=== PATIENT | male | born 1960 | race Caucasian/White ===

== ENCOUNTER 2017-03-01 23:55 | Emergency (ER) | payer SELFPAY ==
[2017-03-02] MEDS ORDERED: Albuterol-Ipratrop 3 mg / 0.5 (3 ml) UD ONE ×3 (00:07→00:47)
--- NOTE | 2017-03-02 00:08 | C.PDOC ---
History Of Present Illness Patient with worsening allergies, swollen eyelids, some wheezing, speaking in complete sentences. No f/c/n/v, Time Seen by Provider: 03/02/17 00:07 Chief Complaint (Nursing): Allergic Reaction History Per: Patient History/Exam Limitations: no limitations Onset/Duration Of Symptoms: Days Current Symptoms Are (Timing): Still Present Context: Other Possible Cause: Seasonal Allergies Associated Symptoms: Redness. denies: Skin Rash Home/EMS Treatment: None Severity: Moderate Pain Scale Rating Of: 4 Recent travel outside of the [place]: No Additional History Per: Patient Past Medical History Reviewed: Historical Data, Nursing Documentation, Vital Signs Vital Signs: Last Vital Signs Temp 97.6 F 03/01/17 23:59 Pulse 85 03/02/17 00:35 Resp 18 03/02/17 00:35 BP 148/87 03/02/17 00:35 Pulse Ox 100 03/02/17 00:35 - Medical History PMH: Asthma, Bronchitis, HTN (no meds), Kidney Stones, Chronic Kidney Disease Family History: States: No Known Family Hx, Diabetes - Social History Hx Tobacco Use: No Hx Alcohol Use: No Hx Substance Use: No - Immunization History Hx Tetanus Toxoid Vaccination: No Hx Influenza Vaccination: Yes Hx Pneumococcal Vaccination: No Review Of Systems Constitutional: Negative for: Fever, Chills Eyes: Positive for: Redness ENT: Negative for: Ear Pain Cardiovascular: Negative for: Chest Pain, Palpitations Respiratory: Positive for: Wheezing. Negative for: Shortness of Breath Gastrointestinal: Negative for: Nausea, Vomiting Genitourinary: Negative for: Dysuria Musculoskeletal: Negative for: Back Pain Skin: Negative for: Rash, Lesions, Jaundice, Bruising Neurological: Negative for: Weakness Psych: Negative for: Anxiety Physical Exam - Physical Exam Appears: Non-toxic Skin: Warm, Dry Eye(s): bilateral: Other (edematous eye lids) Nose: Normal Oral Mucosa: Moist Throat: No Erythema, No Exudate, No Drooling Neck: No Supple Chest: Symmetrical Cardiovascular: Rhythm Regular Respiratory: No Rales, No Rhonchi, Wheezing (few) Gastrointestinal/Abdominal: Soft, No Tenderness, No Distention Extremity: Normal ROM Extremity: Bilateral: Atraumatic Neurological/Psych: Oriented x3, Normal Speech, Normal Cognition Gait: Steady ED Course And Treatment O2 Sat by Pulse Oximetry: 100 Pulse Ox Interpretation: Normal Progress Note: iv solumedrol, pepcid , nebs Reevaluation Time: 02:53 Reassessment Condition: Improved Critical Care Time - Critical Care Note Total Time (in mins): 30 Documented critical care: time excludes all time spent performing seperately billable procedures. Medical Decision Making Medical Decision Making: Upon provider reevaluation patient is feeling better, is medically stable, and requires no further treatment in the ED at this time. Patient will be discharged home with Rx for albuterol, prednisone . Counseling was provided and all questions were answered regarding diagnosis and need for follow up with the referred clinic. There is agreement to discharge plan. Return if symptoms persist or worsen. Disposition Counseled Patient/Family Regarding: Studies Performed, Diagnosis, Need For Followup, Rx Given - Disposition Referrals: [facility] at [facility] [Outside] [facility] [Outside] Disposition: HOME/ ROUTINE Disposition Time: 00:07 Condition: FAIR Additional Instructions: Please return if symptoms recur. Also use benadryl, pepcid and claritin Prescriptions: Albuterol 0.083% [Albuterol Sulfate 3 Ml] 3 ml IH QID #50 neb predniSONE [predniSONE Tab] 20 mg PO DAILY #5 tab Instructions: General Allergic Reaction (ED) Print Language: SLOVENIAN - Clinical Impression Clinical Impression: Allergy
[2017-03-02] MEDS ORDERED: Sodium Chloride 0.9% 1,000 ML IV ONE (00:14)
[2017-03-02] MEDS ORDERED: Sodium Chloride 0.9% 1,000 ML ONE (00:26)
[2017-03-02] MEDS: Albuterol-Ipratrop 3 mg / 0.5 (3 ml) UD IH SCH ×2 (00:46→00:47)
[2017-03-02 03:11] VITALS: BP 158/93; PULSE 96; RESP 20; TEMP 97.9; O2SAT 97
== END 2017-03-02 03:11 | disposition home or self-care (01) ==
LOC: C.ER 23:55
DX: T78.40XA Allergy, unspecified, initial encounter (principal); X58.XXXA Exposure to other specified factors, initial encounter
CPT/HCPCS: 96361; 96374; 96375; 99284; J2930; J7040

== ENCOUNTER 2017-03-23 18:24 | Emergency (ER) | payer SELFPAY ==
[2017-03-23] MEDS ORDERED: Albuterol-Ipratrop 3 mg / 0.5 (3 ml) UD ONE (18:44)
[2017-03-23] MEDS ORDERED: Albuterol-Ipratrop 3 mg / 0.5 (3 ml) UD IH STA (18:47)
[2017-03-23] MEDS ORDERED: Albuterol 0.083% Inhal Sol (2.5 mg/3 mL) UD IH STA ×2 (18:47→20:27)
--- NOTE | 2017-03-23 18:54 | C.PDOC ---
History Of Present Illness 56-year-old male, PMHx includes Asthma, presents to the emergency department with complaints of sore throat. Patient states that he was seen in ED two weeks ago, for shortness of breath and wheezing. patient was discharged after being treated with IVFs, and given Rx for nebulizer meds and inhaler. he states that he developed a productive cough w/ white sputum a few days ago, associated with sore throat, pressure headache behind his eyes, and swollen glands. Patient denies nausea/vomiting, diarrhea, shortness of breath, dizziness, numbness/ weakness, visual changes, chest pain, trouble swallowing, lip/tongue swelling, rashes, or any other associated symptoms. No other complaints at this time. Time Seen by Provider: 03/23/17 18:43 Chief Complaint (Nursing): Cough, Cold, Congestion History Per: Patient History/Exam Limitations: no limitations Onset/Duration Of Symptoms: Days Current Symptoms Are (Timing): Still Present Location Of Pain: Throat, Headache Associated Symptoms: Sore Throat, Cough, Sputum Past Medical History Reviewed: Historical Data, Nursing Documentation, Vital Signs Vital Signs: Last Vital Signs Temp 98.5 F 03/23/17 20:25 Pulse 84 03/23/17 20:25 Resp 20 03/23/17 20:25 BP 148/90 03/23/17 20:25 Pulse Ox 96 03/23/17 21:30 - Medical History PMH: Asthma, Bronchitis, HTN (no meds), Kidney Stones, Chronic Kidney Disease Family History: States: Unknown Family Hx, Diabetes - Social History Hx Tobacco Use: No Hx Alcohol Use: No Hx Substance Use: No - Immunization History Hx Tetanus Toxoid Vaccination: No Hx Influenza Vaccination: Yes Hx Pneumococcal Vaccination: No Review Of Systems Except As Marked, All Systems Reviewed And Found Negative. Constitutional: Negative for: Fever Cardiovascular: Negative for: Chest Pain, Palpitations Respiratory: Positive for: Cough, Sputum. Negative for: Hemoptysis Gastrointestinal: Negative for: Nausea, Vomiting Genitourinary: Negative for: Dysuria, Frequency Musculoskeletal: Negative for: Back Pain Skin: Negative for: Rash Neurological: Positive for: Headache. Negative for: Weakness, Numbness, Dizziness Physical Exam - Physical Exam Appears: Non-toxic, No Acute Distress, Other (Speaking in full sentences.) Skin: Warm, Dry, No Rash Head: Atraumatic, Normacephalic Eye(s): bilateral: Normal Inspection, PERRL Ear(s): Bilateral: Normal Nose: Normal Oral Mucosa: Moist Lips: Normal Appearing Throat: No Erythema, No Exudate Neck: Normal ROM, Supple, Other (Tender, enlarged cervical lymph nodes.) Chest: Symmetrical Cardiovascular: Rhythm Regular, No Murmur Respiratory: No Accessory Muscle Use, No Rales, No Stridor, Wheezing (B/L INSPIRATORY AND EXPIRATORY) Extremity: Normal ROM Neurological/Psych: Oriented x3 (No focal deficit) ED Course And Treatment - Laboratory Results Result Diagrams: 03/23/17 19:18 03/23/17 19:18 Lab Interpretation: No Acute Changes Interpretation Of Abnormal: Mild elevated BUN 22 and low Ca+7.8 ECG: Interpreted By Me ECG Rhythm: Sinus Rhythm ECG Interpretation: Normal O2 Sat by Pulse Oximetry: 96 Pulse Ox Interpretation: Normal - Radiology CXR: Interpreted by Me CXR Interpretation: Yes: No Acute Disease Progress Note: EKG, Bloodwork, Chest X-Ray and Peak Flow, ordered and reviewed. patient was treated with Duoneb. 8:20 Patient still wheezing and c/o headache after initial duoneb and albuterol treatment. Found sleeping lying fully supine on the stretcher in no distress. Additional nebulizer treatments and IV Solumedrol and Tylenol ordered. Reevaluation Time: 22:08 Reassessment Condition: Improved (Lungs now clear.) Disposition Counseled Patient/Family Regarding: Studies Performed, Diagnosis, Need For Followup, Rx Given - Disposition Referrals: [facility] [Outside] Disposition: HOME/ ROUTINE Disposition Time: 22:09 Condition: IMPROVED Prescriptions: Albuterol 0.083% [Albuterol Sulfate 3 Ml] 3 ml IH Q4 PRN #120 neb PRN Reason: Wheezing Methylprednisolone [Medrol Dose Pack (21 tabs)] 4 mg PO DAILY #21 mg Instructions: Asthma (ED), Wheezing (ED) Print Language: MOHAWK - Clinical Impression Clinical Impression: Bronchospasm, Exacerbation of asthma - Scribe Statement The provider has reviewed the documentation as recorded by the Theresa Diego All medical record entries made by the Scribe were at my direction and personally dictated by me. I have reviewed the chart and agree that the record accurately reflects my personal performance of the history, physical exam, medical decision making, and the department course for this patient. I have also personally directed, reviewed, and agree with the discharge instructions and disposition.
[2017-03-23 19:21] LABS: BASO # 0.1 K/uL (0.0-0.2); EOS # 1.1 K/uL (0.0-0.7); HEMATOCRIT 42.9 % (35.0-51.0); MEAN CELL VOLUME 85.6 fL (80.0-94.0); MEAN CORPUSCULAR HEMOGLOBIN 28.3 pg (27.0-31.0); MEAN CORPUSCULAR HGB CONC 33.1 g/dL (33.0-37.0); MEAN PLATELET VOLUME 7.9 fL (7.2-11.7); RED CELL DISTRIBUTION WIDTH 13.6 % (11.5-14.5); WHITE BLOOD COUNT 7.6 K/uL (4.8-10.8)
[2017-03-23 19:31] LABS: CHLORIDE 104 mmol/L (98-107); SODIUM 137 mmol/L (132-148)
[2017-03-23 19:34] LABS: ALB/GLOB RATIO 1.1 (1.0-2.1); ALKALINE PHOSPHATASE 79 U/L (38-126); ALT/SGPT 29 U/L (21-72); AST/SGOT 24 U/L (17-59); BILIRUBIN,TOTAL 0.6 mg/dL (0.2-1.3); BLOOD UREA NITROGEN 22 mg/dL (9-20); CARBON DIOXIDE 25 mmol/L (22-30); GFR AFRICAN-AMERICAN > 60
[2017-03-23 19:35] LABS: CALCIUM 7.8 mg/dl (8.6-10.4); GLUCOSE,RANDOM 98 mg/dL (75-110)
[2017-03-23] MEDS ORDERED: Albuterol 0.083% Inhal Sol (2.5 mg/3 mL) UD ONE ×2 (19:44→20:52)
[2017-03-23 20:20] LABS: EOS % 14.3 % (0.0-4.0); MONO % 4.4 % (0.0-10.0)
[2017-03-23 20:21] LABS: BASO % 1.2 % (0.0-2.0); LYMPH # 2.5 K/uL (1.0-4.3); MONO # 0.3 K/uL (0.0-0.8)
[2017-03-23] MEDS ORDERED: Albuterol 0.083% Inhal Sol (2.5 mg/3 mL) UD INH STA (20:44)
[2017-03-23] MEDS ORDERED: Albuterol 0.083% Inhal Sol (2.5 mg/3 mL) UD INH ONE (21:00)
[2017-03-23 22:27] VITALS: BP 147/92; PULSE 89; RESP 19; TEMP 97.9; O2SAT 95
--- NOTE | 2017-03-24 09:08 | RAD ---
HISTORY: Shortness of breath COMPARISON: No prior. TECHNIQUE: Chest PA and lateral FINDINGS: LUNGS: No active pulmonary disease. PLEURA: No significant pleural effusion identified. No pneumothorax apparent. CARDIOVASCULAR: Normal. OSSEOUS STRUCTURES: No significant abnormalities. VISUALIZED UPPER ABDOMEN: Normal. OTHER FINDINGS: None. IMPRESSION: No active disease.
--- NOTE | 2017-03-24 14:32 | CARD ---
APPROVED REPORT EKG Measurement Heart [id number] <Conclusion> Normal sinus rhythm Normal ECG
== END 2017-03-23 22:29 | disposition home or self-care (01) ==
LOC: C.ER 18:24
DX: J45.901 Unspecified asthma with (acute) exacerbation (principal)
CPT/HCPCS: 71020; 80053; 85025; 93005; 94150; 96374; 99285; J2930

== ENCOUNTER 2017-09-26 21:15 | Observation (INO) | payer SELFPAY ==
[2017-09-26] MEDS ORDERED: Aspirin 325 mg EC Tablets PO STA (22:08)
[2017-09-26 22:25] LABS: BASO # 0.1 K/uL (0.0-0.2); EOS # 0.4 K/uL (0.0-0.7); EOS % 4.8 % (0.0-4.0); HEMATOCRIT 44.8 % (35.0-51.0); LYMPH # 2.8 K/uL (1.0-4.3); LYMPH % 31.2 % (20.0-40.0); MEAN CELL VOLUME 84.8 fL (80.0-94.0); MEAN CORPUSCULAR HGB CONC 34.2 g/dL (33.0-37.0); MEAN PLATELET VOLUME 8.3 fL (7.2-11.7); MONO # 0.7 K/uL (0.0-0.8); MONO % 7.3 % (0.0-10.0); NRBC % 0.1 % (0.0-2.0); RED CELL DISTRIBUTION WIDTH 13.1 % (11.5-14.5); WHITE BLOOD COUNT 9.1 K/uL (4.8-10.8)
[2017-09-26 22:38] LABS: ALB/GLOB RATIO 1.3 (1.0-2.1); ALKALINE PHOSPHATASE 79 U/L (38-126); ALT/SGPT 36 U/L (21-72); AST/SGOT 31 U/L (17-59); BILIRUBIN,TOTAL 0.7 mg/dL (0.2-1.3); BLOOD UREA NITROGEN 22 mg/dL (9-20); CALCIUM 8.3 mg/dl (8.6-10.4); CARBON DIOXIDE 23 mmol/L (22-30); CHLORIDE 97 mmol/L (98-107); CHOLESTEROL 279 mg/dL (0-199); GFR AFRICAN-AMERICAN > 60; GLUCOSE,RANDOM 91 mg/dL (75-110); POTASSIUM 3.8 mmol/L (3.6-5.2); SODIUM 130 mmol/L (132-148); TOTAL PROTEIN 7.1 g/dL (6.3-8.3)
[2017-09-26] MEDS ORDERED: Lactated Ringer's 1,000 ML IV STA (22:42)
[2017-09-26] MEDS ORDERED: Aspirin 325 mg EC Tablets PO ONE (22:42)
--- NOTE | 2017-09-26 22:49 | C.PDOC ---
History Of Present Illness 56 year old male with PMH of asthma presents to ED with complaints of chest pain since 5pm today. Patient describes pain as sharp to left side of chest and having 3 episodes today, each lasting few seconds and resolved without any medication. He reports pain radiates to back, however also reports aching upper back and neck pain for 3 days. He also reports feeling lump to left chest one month ago and is concerned. States it has not grown in size and is only painful upon palpation. Patient states he has been told he has high blood pressure but does not take any medication. He denies any injury, SOB, dizziness, numbness, or weakness. Time Seen by Provider: 09/26/17 21:58 Chief Complaint (Nursing): Back Pain History Per: Patient History/Exam Limitations: no limitations Onset/Duration Of Symptoms: Intermittent Episodes Current Symptoms Are (Timing): Better Severity: Mild Quality: Sharp Modifying Factors: None Exacerbating Factors: None Alleviating Factors: None Past Medical History Reviewed: Historical Data, Nursing Documentation, Vital Signs Vital Signs: Last Vital Signs Temp 97.6 F 09/26/17 21:38 Pulse 80 09/26/17 21:38 Resp 18 09/26/17 21:38 BP 160/94 H 09/26/17 21:38 Pulse Ox 95 09/26/17 23:30 - Medical History PMH: Asthma, Bronchitis, HTN (no meds), Kidney Stones Surgical History: No Surg Hx Family History: States: Diabetes - Social History Hx Tobacco Use: No Hx Alcohol Use: No Hx Substance Use: No - Immunization History Hx Tetanus Toxoid Vaccination: No Hx Influenza Vaccination: No Hx Pneumococcal Vaccination: No Review Of Systems Constitutional: Negative for: Fever Eyes: Negative for: Vision Change Cardiovascular: Positive for: Chest Pain. Negative for: Palpitations Respiratory: Negative for: Cough, Shortness of Breath, Sputum Gastrointestinal: Negative for: Vomiting, Abdominal Pain, Diarrhea Musculoskeletal: Positive for: Back Pain. Negative for: Shoulder Pain Neurological: Negative for: Weakness, Numbness, Headache, Dizziness Physical Exam - Physical Exam Appears: Non-toxic, No Acute Distress Skin: Warm, Dry, No Rash Head: Atraumatic, Normacephalic Eye(s): bilateral: Normal Inspection, EOMI Nose: Normal Oral Mucosa: Moist Neck: Normal ROM Chest: Symmetrical, Tenderness (to palpable mobile soft 1cm round mass to left breast at 7oclock about 2cm away from nipple, no erythema or swelling) Cardiovascular: Rhythm Regular, No Murmur Respiratory: Normal Breath Sounds, No Accessory Muscle Use, No Rales, No Wheezing Gastrointestinal/Abdominal: Soft, No Tenderness, No Guarding Extremity: Bilateral: Atraumatic, No Pedal Edema, Normal Color And Temperature, Normal ROM Neurological/Psych: Oriented x3, Normal Speech Gait: Steady ED Course And Treatment - Laboratory Results Result Diagrams: 09/26/17 22:28 09/26/17 22:22 Lab Interpretation: No Acute Changes ECG: Interpreted By Me, Viewed By Me ECG Rhythm: Sinus Rhythm ECG Interpretation: Abnormal Interpretation Of ECG: NS at 71bpm with t-wave inversion to inferior leads, inferior infarct age undetermined and not present on last EKG 03/23/17 O2 Sat by Pulse Oximetry: 95 Pulse Ox Interpretation: Normal - Radiology CXR: Interpreted by Me, Viewed By Me CXR Interpretation: Yes: No Acute Disease Progress - Interventions Interventions:: Observation, Intravenous fluid (Lactated ringers) - Medications Administered Oral: Aspirin - Data Reviewed Data Reviewed: Lab, Diagnostic imaging, EKG, Old records - Patient Status Patient status: Stable - Continuity of Care Discussed patient case with:: On-call PMD-pt unassigned ([address] Cuellar) - Patient Plan Patient Plan: Observation, Telemetry - Notes: Notes:: Patient with chest pain. Abnormal EKG and abnormal cardiac markers. Will admit to hospital for further care and cardiology Disposition - Disposition Disposition: HOSPITALIZED Disposition Time: 23:29 Condition: STABLE - POA Present On Arrival: None - Clinical Impression Clinical Impression: Chest pain, Hyperlipidemia Decision To Admit - Pt Status Changed To: Hospital Disposition Of: Observation - . Bed Request Type: Telemetry Admitting Physician: Gideon Cuellar Patient Diagnosis: Chest pain, Hyperlipidemia
[2017-09-26 22:52] LABS: RBC URINE < 1 /hpf (0-3); URINE BILIRUBIN NEGATIVE (NEGATIVE); URINE BLOOD NEGATIVE (NEGATIVE); URINE COLOR Straw (YELLOW); URINE GLUCOSE (UA) NORMAL (Normal); URINE KETONE NEGATIVE (NEGATIVE); URINE LEUKOCYTE ESTERASE NEG Leu/uL (Negative); URINE PROTEIN 2+ mg/dL (NEGATIVE); URINE UROBILINOGEN NORMAL mg/dL (0.2-1.0); WBC URINE < 1 /hpf (0-5)
--- NOTE | 2017-09-27 01:41 | CP.PCM.HP ---
<KahlilSylvia SFaiza - Last Filed: 09/27/17 02:04> History of Present Illness - History of Present Illness History of Present Illness: CC: " chest pain" HPI: 56 year old male with history of asthma presents to the ED with chest pain that started 3 days ago. He came to the ED today because his family became worried that this pain was still occurring. Patient states the pain comes and goes. It started this morning while he was helping his in the kitchen cooking it only lasts for a few seconds and the pain goes away. He states the pain feels like someone is poking at him. He denies radiation of the pain. He states he currently does not feel any pain. He denies shortness of breath or difficulty breathing. 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 He denies nausea, vomiting, dizziness, light headedness, syncope, fever, chills, diarrhea or constipation. PMD: none Past medical history: Asthma; stone in his gallbladder Past surgical history: Denies Medications: Ventolin Allergies: NKDA Family History: Brother has diabetes Social: Works in construction; lives with and son; denies alcohol, illicit drug use or smoking. Present on Admission - Present on Admission Any Indicators Present on Admission: No Review of Systems - Constitutional Constitutional: absent: Fever, Headache, Weakness - EENT Eyes: absent: Blurred Vision, Change in Vision - Cardiovascular Cardiovascular: Chest Pain. absent: Chest Pain with Activity, Dyspnea, Leg Edema, Palpitations, Pedal Edema, Radiating Pain - Respiratory Respiratory: absent: Dyspnea - Gastrointestinal Gastrointestinal: absent: Constipation, Diarrhea, Nausea, Vomiting - Genitourinary Genitourinary: absent: Dysuria - Musculoskeletal Musculoskeletal: absent: Numbness, Tingling - Neurological Neurological: absent: Dizziness, Headaches - Endocrine Endocrine: absent: Palpitations Past Patient History - Infectious Disease Hx of Infectious Diseases: None - Past Social History Smoking Status: Never Smoked - CARDIAC Hx Hypertension: Yes (no meds) - PULMONARY Hx Asthma: Yes Hx Bronchitis: Yes - NEUROLOGICAL Hx Neurological Disorder: No - HEENT Hx HEENT Problems: No - RENAL Hx Kidney Stones: Yes - ENDOCRINE/METABOLIC Hx Endocrine Disorders: No - HEMATOLOGICAL/ONCOLOGICAL Hx Blood Disorders: No - INTEGUMENTARY Hx Dermatological Problems: No - MUSCULOSKELETAL/RHEUMATOLOGICAL Hx Musculoskeletal Disorders: No - GASTROINTESTINAL Hx Gastrointestinal Disorders: No Hx Liver Failure: No - GENITOURINARY/GYNECOLOGICAL Hx Genitourinary Disorders: No - PSYCHIATRIC Hx Substance Use: No - SURGICAL HISTORY Hx Surgeries: No - ANESTHESIA Hx Anesthesia: No Meds Allergies/Adverse Reactions: Allergies Allergy/AdvReac Type Severity Reaction Status Date / Time peanut Allergy SHORTNESS Verified 09/26/17 21:40 OF BREATH seasonal AdvReac ITCHING Uncoded 09/26/17 21:40 Physical Exam - Constitutional Appears: No Acute Distress - Head Exam Head Exam: ATRAUMATIC, NORMAL INSPECTION - Eye Exam Eye Exam: EOMI, Normal appearance - ENT Exam ENT Exam: Mucous Membranes Moist - Respiratory Exam Respiratory Exam: Clear to Auscultation Bilateral, NORMAL BREATHING PATTERN. absent: Rales, Rhonchi, Wheezes, Stridor - Cardiovascular Exam Cardiovascular Exam: REGULAR RHYTHM, RRR, +S1, +S2 Additional comments: palpable small lump like structure on the left side of the chest below and to the right of the nipple- tender to palpation - GI/Abdominal Exam GI & Abdominal Exam: Normal Bowel Sounds, Soft. absent: Tenderness - Extremities Exam Extremities exam: Positive for: normal inspection. Negative for: pedal edema, tenderness - Neurological Exam Neurological exam: Alert, CN II-XII Intact, Oriented x3 - Psychiatric Exam Psychiatric exam: Normal Affect, Normal Mood - Skin Skin Exam: Normal Color, Warm Additional comments: palpable small lump like structure on the left side of the chest below and to the right of the nipple Results - Vital Signs Recent Vital Signs: Last Vital Signs Temp 97.6 F 09/27/17 00:44 Pulse 76 09/27/17 00:44 Resp 18 09/27/17 00:44 BP 148/86 09/27/17 00:44 Pulse Ox 100 09/27/17 00:44 - Labs Result Diagrams: 09/26/17 22:28 09/26/17 22:22 Labs: Laboratory Results - last 24 hr 09/26/17 09/26/17 09/26/17 22:08 22:22 22:22 WBC RBC Hgb Hct MCV MCH MCHC RDW Plt Count MPV Neut % (Auto) Lymph % (Auto) Leon % (Auto) Eos % (Auto) Baso % (Auto) Neut # Lymph # Leon # Eos # Baso # PT 10.8 INR 1.0 APTT 36 H Sodium 130 L Potassium 3.8 Chloride 97 L Carbon Dioxide 23 Anion Gap 13 BUN 22 H Creatinine 1.2 Est GFR ( Amer) > 60 Est GFR (Non-Af Amer) > 60 Random Glucose 91 Calcium 8.3 L Total Bilirubin 0.7 AST 31 ALT 36 Alkaline Phosphatase 79 CK-MB (Mass) 4.99 H Troponin I < 0.0120 Total Protein 7.1 Albumin 4.1 Globulin 3.1 Albumin/Globulin Ratio 1.3 Triglycerides 419 H D Cholesterol 279 H LDL Cholesterol Direct 167 H HDL Cholesterol 63 Urine Color Straw Urine Clarity Clear Urine pH 7.0 Ur Specific [place] 1.011 Urine Protein 2+ H Urine Glucose (UA) Normal Urine Ketones Negative Urine Blood Negative Urine Nitrate Negative Urine Bilirubin Negative Urine Urobilinogen Normal Ur Leukocyte Esterase Neg Urine WBC (Auto) < 1 Urine RBC (Auto) < 1 Ur Squamous Epith Cells < 1 09/26/17 22:28 WBC 9.1 RBC 5.28 Hgb 15.3 Hct 44.8 MCV 84.8 MCH 29.0 MCHC 34.2 RDW 13.1 Plt Count 248 MPV 8.3 Neut % (Auto) 55.7 Lymph % (Auto) 31.2 Leon % (Auto) 7.3 Eos % (Auto) 4.8 H Baso % (Auto) 1.0 Neut # 5.1 Lymph # 2.8 Leon # 0.7 Eos # 0.4 Baso # 0.1 PT INR APTT Sodium Potassium Chloride Carbon Dioxide Anion Gap BUN Creatinine Est GFR ( Amer) Est GFR (Non-Af Amer) Random Glucose Calcium Total Bilirubin AST ALT Alkaline Phosphatase CK-MB (Mass) Troponin I Total Protein Albumin Globulin Albumin/Globulin Ratio Triglycerides Cholesterol LDL Cholesterol Direct HDL Cholesterol Urine Color Urine Clarity Urine pH Ur Specific [place] Urine Protein Urine Glucose (UA) Urine Ketones Urine Blood Urine Nitrate Urine Bilirubin Urine Urobilinogen Ur Leukocyte Esterase Urine WBC (Auto) Urine RBC (Auto) Ur Squamous Epith Cells Assessment & Plan - Assessment and Plan (Free Text) Assessment: 1.) Chest pain - RAQUEL: Negative - f/u RAQUEL & EKG x2 - EKG: Normal Sinus Rhythm - f/u ECHO - f/u chest x-ray Medications: * Aspirin 81mg daily * Crestor 5mg PO HS - Heart Healthy Diet - f/u Lipid panel, hA1c 2.) History of Asthma - Ventolin as needed 3.) Prophylaxis - Pepcid 20mg daily - Heparin SC - SCDs Case discussed with Dr. Alisa Guillory PGY-1 <Gideon Cuellar - Last Filed: 09/27/17 06:30> Results - Vital Signs Recent Vital Signs: Last Vital Signs Temp 97.3 F L 09/27/17 05:37 Pulse 67 09/27/17 05:37 Resp 95 H 09/27/17 05:37 BP 148/95 H 09/27/17 05:37 Pulse Ox 95 09/27/17 02:30 - Labs Result Diagrams: 09/26/17 22:28 09/26/17 22:22 Labs: Laboratory Results - last 24 hr 09/26/17 09/26/17 09/26/17 22:08 22:22 22:22 WBC RBC Hgb Hct MCV MCH MCHC RDW Plt Count MPV Neut % (Auto) Lymph % (Auto) Leon % (Auto) Eos % (Auto) Baso % (Auto) Neut # Lymph # Leon # Eos # Baso # PT 10.8 INR 1.0 APTT 36 H Sodium 130 L Potassium 3.8 Chloride 97 L Carbon Dioxide 23 Anion Gap 13 BUN 22 H Creatinine 1.2 Est GFR ( Amer) > 60 Est GFR (Non-Af Amer) > 60 Random Glucose 91 Calcium 8.3 L Total Bilirubin 0.7 AST 31 ALT 36 Alkaline Phosphatase 79 CK-MB (Mass) 4.99 H Troponin I < 0.0120 Total Protein 7.1 Albumin 4.1 Globulin 3.1 Albumin/Globulin Ratio 1.3 Triglycerides 419 H D Cholesterol 279 H LDL Cholesterol Direct 167 H HDL Cholesterol 63 Urine Color Straw Urine Clarity Clear Urine pH 7.0 Ur Specific [place] 1.011 Urine Protein 2+ H Urine Glucose (UA) Normal Urine Ketones Negative Urine Blood Negative Urine Nitrate Negative Urine Bilirubin Negative Urine Urobilinogen Normal Ur Leukocyte Esterase Neg Urine WBC (Auto) < 1 Urine RBC (Auto) < 1 Ur Squamous Epith Cells < 1 09/26/17 22:28 WBC 9.1 RBC 5.28 Hgb 15.3 Hct 44.8 MCV 84.8 MCH 29.0 MCHC 34.2 RDW 13.1 Plt Count 248 MPV 8.3 Neut % (Auto) 55.7 Lymph % (Auto) 31.2 Leon % (Auto) 7.3 Eos % (Auto) 4.8 H Baso % (Auto) 1.0 Neut # 5.1 Lymph # 2.8 Leon # 0.7 Eos # 0.4 Baso # 0.1 PT INR APTT Sodium Potassium Chloride Carbon Dioxide Anion Gap BUN Creatinine Est GFR ( Amer) Est GFR (Non-Af Amer) Random Glucose Calcium Total Bilirubin AST ALT Alkaline Phosphatase CK-MB (Mass) Troponin I Total Protein Albumin Globulin Albumin/Globulin Ratio Triglycerides Cholesterol LDL Cholesterol Direct HDL Cholesterol Urine Color Urine Clarity Urine pH Ur Specific [place] Urine Protein Urine Glucose (UA) Urine Ketones Urine Blood Urine Nitrate Urine Bilirubin Urine Urobilinogen Ur Leukocyte Esterase Urine WBC (Auto) Urine RBC (Auto) Ur Squamous Epith Cells Assessment & Plan - Date & Time Date: 09/27/17 (I have seen and examined the patient. I agree with the findings and plan of care as documented by Dr. Guillory. Patient with chest pain. ROMIx3 with EKG. Tele. Aspirin and Statin. Denies any previous chest pain. Consider Nitro if chest pain persists. Also with history of asthma. Continue home meds. Monitor for acute changes.) Time: 06:29 Attending/Attestation - Attestation I have personally seen and examined this patient.: Yes I have fully participated in the care of the patient.: Yes I have reviewed all pertinent clinical information: Yes
[2017-09-27] MEDS ORDERED: Albuterol HFA 90 mcg/actuation (8 g) INH PRN (01:55)
[2017-09-27 07:55] VITALS: RESP 20; TEMP 97.7
--- NOTE | 2017-09-27 12:16 | RAD ---
HISTORY: chest pain COMPARISON: Comparison chest 03/23/2017 TECHNIQUE: Chest PA and lateral FINDINGS: LUNGS: No active pulmonary disease. PLEURA: No significant pleural effusion identified. No pneumothorax apparent. CARDIOVASCULAR: Normal. OSSEOUS STRUCTURES: Minor multilevel degenerative spondylosis of the thoracic spine. Mild degenerative changes both acromioclavicular joints. VISUALIZED UPPER ABDOMEN: Normal. OTHER FINDINGS: None. IMPRESSION: No active disease.
[2017-09-27 13:48] LABS: BASO # 0.1 K/uL (0.0-0.2); BASO % 0.9 % (0.0-2.0); EOS # 0.5 K/uL (0.0-0.7); EOS % 7.5 % (0.0-4.0); HEMATOCRIT 47.4 % (35.0-51.0); LYMPH # 1.9 K/uL (1.0-4.3); LYMPH % 30.5 % (20.0-40.0); MEAN CELL VOLUME 85.8 fL (80.0-94.0); MEAN CORPUSCULAR HGB CONC 33.8 g/dL (33.0-37.0); MEAN PLATELET VOLUME 8.6 fL (7.2-11.7); MONO # 0.3 K/uL (0.0-0.8); MONO % 4.7 % (0.0-10.0); NRBC % 0.1 % (0.0-2.0); RED CELL DISTRIBUTION WIDTH 13.3 % (11.5-14.5); WHITE BLOOD COUNT 6.1 K/uL (4.8-10.8)
[2017-09-27 14:03] LABS: ALKALINE PHOSPHATASE 80 U/L (38-126); ALT/SGPT 41 U/L (21-72); AST/SGOT 30 U/L (17-59); BILIRUBIN,TOTAL 0.7 mg/dL (0.2-1.3); BLOOD UREA NITROGEN 15 mg/dL (9-20); CALCIUM 8.4 mg/dl (8.6-10.4); CARBON DIOXIDE 25 mmol/L (22-30); CHLORIDE 99 mmol/L (98-107); GFR AFRICAN-AMERICAN > 60; GLUCOSE,RANDOM 132 mg/dL (75-110); POTASSIUM 3.9 mmol/L (3.6-5.2); SODIUM 132 mmol/L (132-148); TOTAL PROTEIN 8.3 g/dL (6.3-8.3)
[2017-09-27] MEDS ORDERED: Influenza Vaccine 60 mcg/0.5 mL SYR (4YR UP) IM ONE (14:36)
[2017-09-27] MEDS ORDERED: Pneumococcal 23-Valent Vaccine IM ONE (14:37)
[2017-09-27 16:02] VITALS: BP 138/96; PULSE 64; O2SAT 97
--- NOTE | 2017-09-27 18:22 | CP.PCM.DIS ---
<Kareem Shultz - Last Filed: 09/27/17 18:20> Provider - Provider Date of Admission: 09/26/17 23:31 Attending physician: Gideon Cuellar MD Consults: Dr. Solorio; Cardiology Time Spent in preparation of Discharge (in minutes): 45 Hospital Course - Lab Results Lab Results: Most Recent Lab Values WBC 6.1 K/uL (4.8-10.8) 09/27/17 13:40 RBC 5.52 Mil/uL (4.40-5.90) 09/27/17 13:40 Hgb 16.0 g/dL (12.0-18.0) 09/27/17 13:40 Hct 47.4 % (35.0-51.0) 09/27/17 13:40 MCV 85.8 fL (80.0-94.0) 09/27/17 13:40 MCH 29.0 pg (27.0-31.0) 09/27/17 13:40 MCHC 33.8 g/dL (33.0-37.0) 09/27/17 13:40 RDW 13.3 % (11.5-14.5) 09/27/17 13:40 Plt Count 257 K/uL (130-400) 09/27/17 13:40 MPV 8.6 fL (7.2-11.7) 09/27/17 13:40 Neut % (Auto) 56.4 % (50.0-75.0) 09/27/17 13:40 Lymph % (Auto) 30.5 % (20.0-40.0) 09/27/17 13:40 [place] % (Auto) 4.7 % (0.0-10.0) 09/27/17 13:40 Eos % (Auto) 7.5 % (0.0-4.0) H 09/27/17 13:40 Baso % (Auto) 0.9 % (0.0-2.0) 09/27/17 13:40 Neut # 3.4 K/uL (1.8-7.0) 09/27/17 13:40 Lymph # 1.9 K/uL (1.0-4.3) 09/27/17 13:40 [place] # 0.3 K/uL (0.0-0.8) 09/27/17 13:40 Eos # 0.5 K/uL (0.0-0.7) 09/27/17 13:40 Baso # 0.1 K/uL (0.0-0.2) 09/27/17 13:40 PT 10.8 SECONDS (9.7-12.2) 09/26/17 22:22 INR 1.0 09/26/17 22:22 APTT 36 SECONDS (21-34) H 09/26/17 22:22 Sodium 132 mmol/L (132-148) 09/27/17 13:40 Potassium 3.9 mmol/L (3.6-5.2) 09/27/17 13:40 Chloride 99 mmol/L (98-107) 09/27/17 13:40 Carbon Dioxide 25 mmol/L (22-30) 09/27/17 13:40 Anion Gap 12 (10-20) 09/27/17 13:40 BUN 15 mg/dL (9-20) 09/27/17 13:40 Creatinine 0.8 mg/dL (0.8-1.5) 09/27/17 13:40 Est GFR ( Amer) > 60 09/27/17 13:40 Est GFR (Non-Af Amer) > 60 09/27/17 13:40 Random Glucose 132 mg/dL (75-110) H 09/27/17 13:40 Calcium 8.4 mg/dl (8.6-10.4) L 09/27/17 13:40 Total Bilirubin 0.7 mg/dL (0.2-1.3) 09/27/17 13:40 AST 30 U/L (17-59) 09/27/17 13:40 ALT 41 U/L (21-72) 09/27/17 13:40 Alkaline Phosphatase 80 U/L (38-126) 09/27/17 13:40 Total Creatine Kinase 277 U/L (55-170) H 09/27/17 13:40 CK-MB (Mass) 3.52 ng/mL (0.0-3.38) H 09/27/17 13:40 Troponin I < 0.0120 ng/mL (0.00-0.120) 09/27/17 13:40 NT-Pro-B Natriuret Pep 92.1 pg/mL (0-900) 09/27/17 13:40 Total Protein 8.3 g/dL (6.3-8.3) 09/27/17 13:40 Albumin 4.1 g/dL (3.5-5.0) 09/27/17 13:40 Globulin 4.2 gm/dL (2.2-3.9) H 09/27/17 13:40 Albumin/Globulin Ratio 1.0 (1.0-2.1) 09/27/17 13:40 Triglycerides 419 mg/dL (0-149) H D 09/26/17 22:22 Cholesterol 279 mg/dL (0-199) H 09/26/17 22:22 LDL Cholesterol Direct 167 mg/dL (0-129) H 09/26/17 22:22 HDL Cholesterol 63 mg/dL (30-70) 09/26/17 22:22 Urine Color Straw (YELLOW) 09/26/17 22:08 Urine Clarity Clear (Clear) 09/26/17 22:08 Urine pH 7.0 (5.0-8.0) 09/26/17 22:08 Ur Specific [place] 1.011 (1.003-1.030) 09/26/17 22:08 Urine Protein 2+ mg/dL (NEGATIVE) H 09/26/17 22:08 Urine Glucose (UA) Normal mg/dL (Normal) 09/26/17 22:08 Urine Ketones Negative mg/dL (NEGATIVE) 09/26/17 22:08 Urine Blood Negative (NEGATIVE) 09/26/17 22:08 Urine Nitrate Negative (NEGATIVE) 09/26/17 22:08 Urine Bilirubin Negative (NEGATIVE) 09/26/17 22:08 Urine Urobilinogen Normal mg/dL (0.2-1.0) 09/26/17 22:08 Ur Leukocyte Esterase Neg Tarik/uL (Negative) 09/26/17 22:08 Urine WBC (Auto) < 1 /hpf (0-5) 09/26/17 22:08 Urine RBC (Auto) < 1 /hpf (0-3) 09/26/17 22:08 Ur Squamous Epith Cells < 1 /hpf (0-5) 09/26/17 22:08 - Hospital Course Hospital Course: Chest pain - RAQUEL: Negative x3 - f/u RAQUEL & EKG x2 - EKG: Normal Sinus Rhythm - ECHO WNL as per Dr. Solorio - Chest X-Ray WNL Medications: * Aspirin 81mg daily * Crestor 5mg PO HS patient will need to continue aspirin, crestor as outpatient. He will need to have regular lab work done as an outpatient as well. 2.) History of Asthma - Ventolin as needed Will give script for ventolin The patient will need to f.u in the [facility] for further care ; if he does not have insurance he can follow up with us in the [facility] for free the patient will need to continue aspirin and crestor as an outpatient The patient was found to have high blood pressure during this hospitalization, he will also need to continue Lisinopril 10mg daily as well, and monitor his blood pressure It was a pleasure taking care of you. Please feel better Discharge Exam - Head Exam Head Exam: ATRAUMATIC, NORMAL INSPECTION Discharge Plan - Discharge Medications Prescriptions: RX: Aspirin 81 mg PO DAILY #30 tab.chew Atorvastatin [Lipitor] 40 mg PO DAILY #30 tab Lisinopril [Prinivil] 10 mg PO DAILY #30 tablet - Follow Up Plan Condition: FAIR Disposition: HOME/ ROUTINE Patient education suggested?: Yes Instructions: Lisinopril (By mouth), Atorvastatin (By mouth), Coronary Artery Disease (DC), Chest Pain (DC), Heart Healthy Diet (DC), Chronic Hypertension (DC ), Hyperlipidemia (DC) Referrals: Clinic,Med Surg [Non-Staff] - <Theresa Swanson V - Last Filed: 09/27/17 23:33> Provider - Provider Date of Admission: 09/26/17 23:31 Attending physician: Gideon Cuellar MD Hospital Course - Lab Results Lab Results: Most Recent Lab Values WBC 6.1 K/uL (4.8-10.8) 09/27/17 13:40 RBC 5.52 Mil/uL (4.40-5.90) 09/27/17 13:40 Hgb 16.0 g/dL (12.0-18.0) 09/27/17 13:40 Hct 47.4 % (35.0-51.0) 09/27/17 13:40 MCV 85.8 fL (80.0-94.0) 09/27/17 13:40 MCH 29.0 pg (27.0-31.0) 09/27/17 13:40 MCHC 33.8 g/dL (33.0-37.0) 09/27/17 13:40 RDW 13.3 % (11.5-14.5) 09/27/17 13:40 Plt Count 257 K/uL (130-400) 09/27/17 13:40 MPV 8.6 fL (7.2-11.7) 09/27/17 13:40 Neut % (Auto) 56.4 % (50.0-75.0) 09/27/17 13:40 Lymph % (Auto) 30.5 % (20.0-40.0) 09/27/17 13:40 [place] % (Auto) 4.7 % (0.0-10.0) 09/27/17 13:40 Eos % (Auto) 7.5 % (0.0-4.0) H 09/27/17 13:40 Baso % (Auto) 0.9 % (0.0-2.0) 09/27/17 13:40 Neut # 3.4 K/uL (1.8-7.0) 09/27/17 13:40 Lymph # 1.9 K/uL (1.0-4.3) 09/27/17 13:40 [place] # 0.3 K/uL (0.0-0.8) 09/27/17 13:40 Eos # 0.5 K/uL (0.0-0.7) 09/27/17 13:40 Baso # 0.1 K/uL (0.0-0.2) 09/27/17 13:40 PT 10.8 SECONDS (9.7-12.2) 09/26/17 22:22 INR 1.0 09/26/17 22:22 APTT 36 SECONDS (21-34) H 09/26/17 22:22 Sodium 132 mmol/L (132-148) 09/27/17 13:40 Potassium 3.9 mmol/L (3.6-5.2) 09/27/17 13:40 Chloride 99 mmol/L (98-107) 09/27/17 13:40 Carbon Dioxide 25 mmol/L (22-30) 09/27/17 13:40 Anion Gap 12 (10-20) 09/27/17 13:40 BUN 15 mg/dL (9-20) 09/27/17 13:40 Creatinine 0.8 mg/dL (0.8-1.5) 09/27/17 13:40 Est GFR ( Amer) > 60 09/27/17 13:40 Est GFR (Non-Af Amer) > 60 09/27/17 13:40 Random Glucose 132 mg/dL (75-110) H 09/27/17 13:40 Calcium 8.4 mg/dl (8.6-10.4) L 09/27/17 13:40 Total Bilirubin 0.7 mg/dL (0.2-1.3) 09/27/17 13:40 AST 30 U/L (17-59) 09/27/17 13:40 ALT 41 U/L (21-72) 09/27/17 13:40 Alkaline Phosphatase 80 U/L (38-126) 09/27/17 13:40 Total Creatine Kinase 277 U/L (55-170) H 09/27/17 13:40 CK-MB (Mass) 3.52 ng/mL (0.0-3.38) H 09/27/17 13:40 Troponin I < 0.0120 ng/mL (0.00-0.120) 09/27/17 13:40 NT-Pro-B Natriuret Pep 92.1 pg/mL (0-900) 09/27/17 13:40 Total Protein 8.3 g/dL (6.3-8.3) 09/27/17 13:40 Albumin 4.1 g/dL (3.5-5.0) 09/27/17 13:40 Globulin 4.2 gm/dL (2.2-3.9) H 09/27/17 13:40 Albumin/Globulin Ratio 1.0 (1.0-2.1) 09/27/17 13:40 Triglycerides 419 mg/dL (0-149) H D 09/26/17 22:22 Cholesterol 279 mg/dL (0-199) H 09/26/17 22:22 LDL Cholesterol Direct 167 mg/dL (0-129) H 09/26/17 22:22 HDL Cholesterol 63 mg/dL (30-70) 09/26/17 22:22 Urine Color Straw (YELLOW) 09/26/17 22:08 Urine Clarity Clear (Clear) 09/26/17 22: Urine pH 7.0 (5.0-8.0) 09/26/17 22:08 Ur Specific [place] 1.011 (1.003-1.030) 09/26/17 22:08 Urine Protein 2+ mg/dL (NEGATIVE) H 09/26/17 22: Urine Glucose (UA) Normal mg/dL (Normal) 09/26/17 22: Urine Ketones Negative mg/dL (NEGATIVE) 09/26/17 22: Urine Blood Negative (NEGATIVE) 09/26/17 22: Urine Nitrate Negative (NEGATIVE) 09/26/17: Urine Bilirubin Negative (NEGATIVE) 09/26/17: Urine Urobilinogen Normal mg/dL (0.2-1.0) 09/26/17 22: Ur Leukocyte Esterase Neg Tarik/uL (Negative) 09/26/17 22: Urine WBC (Auto) < 1 /hpf (0-5) 09/26/17:08 Urine RBC (Auto) < 1 /hpf (0-3) 09/26/17 22: Ur Squamous Epith Cells < 1 /hpf (0-5) 09/26/17 22:08 Attending/Attestation - Attestation I have personally seen and examined this patient.: Yes I have fully participated in the care of the patient.: Yes I have reviewed all pertinent clinical information, including history, physical exam and plan: Yes Notes (Text): Patient seen, examined and case discussed with day-time resident and selvage machine operator. Patient observed on telemetry given complaints of chest pain. Patient seen this afternoon with his and daughter at bedside. Patient denies any symptoms at this time. Chest pain has resolved. EKGs within normal limits, RAQUEL X3 negative. Probnp: within normal limits. Patient has dyslipidemia, medication naive, educated about diet modifications, will need statin upon discharge and repeat lipid panel in 3-4 months. Patient has hypertension, but is not taking any medications for it. Per cardiology, patient is stable, recommended for outpatient stress test. This is a summary of patient's hospitalization. Please see EMR for further details. Discharge Diagnoses: 1.) Chest pain -->Resolved * RAQUEL X3 negative * Echo-->awaiting official read; reviewed by cardiology * Discussed with cardiology, patient stable from their standpoint, recommended for outpatient stress tests. * Lipid panel abnormal-->diet modifications and start statin * Cardiology (Dr. Reece) on the case-->help appreciated * Follow-up a1c as outpatient * Aspirin 81mg daily as cardioprotective measure * Lisinopril 10mg PO daily * Lipitor 40mg subqhs (30 tabs/0) 2) Hypertension, uncontrolled-->chronic * Start Lisinopril 2.5mg PO daily and provided upon discharge; tolerated jackie- inhibitor during hospitalization-->given Lisinopril 10mg PO daily * Aspirin 81mg daily as cardioprotective measure 3) Dyslipidemia-->chronic * will need statin upon discharge and repeat lipid panel and liver function tests in 3-4 months * Provided script for Lipitor 40mg subqhs (30 tabs/0) 4) History of Asthma-->chronic * Ventolin as needed * Patient is not in acute exacerbation 5) Prophylaxis * Pepcid 20mg daily * Heparin SC * SCDs
--- NOTE | 2017-09-28 00:39 | CON ---
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 The patient is unaware of any prior cardiac history. SOCIAL HISTORY: The patient is a nonsmoker, nondrinker. MEDICATIONS: Aspirin 81 mg once a day, Crestor 5 mg once a day, heparin 5000 units subcutaneously twice a day, Lopressor 25 mg twice a day and Zestril 2.5 mg once a day. REVIEW OF SYSTEMS: No fever or chills. No vomiting or diarrhea. 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 PHYSICAL EXAMINATION: GENERAL: The patient is a middle-aged male, who does not appear to be in acute distress. VITAL SIGNS: Blood pressure 138/96, heart rate 64, temperature 97.7, respirations 20. HEENT: Normocephalic. CHEST: Clear. HEART: S1 and S2 regular. ABDOMEN: Soft. EXTREMITIES: No edema. LABORATORY DATA: Today SMA-7 is within normal limit except for glucose of 132. Three sets of troponins are negative, triglycerides elevated 419, total cholesterol elevated to 179, HDL cholesterol 167. CBC is within normal limit except for eosinophil of 7.5%. PTT 36, INR is 1.0. EKG revealed normal sinus rhythm. Inferior Q waves were noted in one EKG. ASSESSMENT: 1. Atypical chest pain, myocardial infraction is ruled out. 2. Hypertension. 3. Hyperlipidemia. RECOMMENDATIONS: Continue aspirin 81 mg once a day, increase Crestor to 20 mg once a day. Continue Lopressor 25 mg twice a day and Zestril 2.5 mg once a day. I will review the echocardiograph study that was performed today. Tj Rhodes MD
--- NOTE | 2017-09-29 06:46 | CARD ---
APPROVED REPORT EXAM: Two-dimensional and M-mode echocardiogram with Doppler and color Doppler. Other Information Quality : GoodRhythm : INDICATION Chest Pain RISK FACTORS Hyperlipidemia M-Mode DIMENSIONS RVDd1.13 (2.1-3.2cm)Left Atrium (MM)3.71 (2.5-4.0cm) IVSd1.21 (0.7-1.1cm)Aortic Root4.04 (2.2-3.7cm) LVDd4.33 (4.0-5.6cm)Aortic Cusp Exc.2.10 (1.5-2.0cm) PWd1.25 (0.7-1.1cm)FS (%) 30 % LVDs3.05 (2.0-3.8cm)LVEF (%)57 (>50%) Mitral Valve MV E Gfagwguc59.0cm/sMV A Znipmowg62.0cm/sE/A ratio0.6 TDI E/Lateral E'0.0E/Medial E'0.0 Tricuspid Valve TR Peak [id number]/sTR Peak [id number] <Conclusion> Left ventricle: thickness: normal; size: normal; overall ejection fraction: 60%: diastolic filling pressures: normal Mitral valve: annulus: normal: leaflets: normal: excursion: normal; no significant trans-mitral gradient: no significant incompetence: left atrium: normal Aortic valve: leaflets: normal: excursion: normal; no significant trans-aortic gradient: No significant incompetence: aortic root: normal Right sided Structures: Pulmonary valve: normal; no significant incompetence; Tricuspid valve: normal; no significant incompetence: Intra-cardiac hemodynamics: pulmonary systolic pressures: normal; central venous pressures: normal No pericardial effusion
--- NOTE | 2017-09-29 09:01 | CARD ---
APPROVED REPORT EKG Measurement Heart [id number] <Conclusion> Normal sinus rhythm Inferior infarct, age undetermined Abnormal ECG
[2017-09-29] MEDS ORDERED: Influenza Vaccine 60 mcg/0.5 mL SYR (4YR UP) IM ONE (14:00)
[2017-09-29] MEDS ORDERED: Pneumococcal 23-Valent Vaccine IM ONE (14:00)
[2017-09-30] MEDS ORDERED: Pneumococcal 23-Valent Vaccine IM ONE (14:00)
== END 2017-09-27 19:13 | disposition home or self-care (01) ==
LOC: C.ER 21:15 → C.9E 23:31 → C.6T 09-27 00:35 → C.5S 09-27 01:23
PROVIDERS: ADMIT Family Medicine; ATTEND Family Medicine
DX: R07.89 Other chest pain (principal); I10 Essential (primary) hypertension; E11.9 Type 2 diabetes mellitus without complications; E78.5 Hyperlipidemia, unspecified; J45.909 Unspecified asthma, uncomplicated; Z79.82 Long term (current) use of aspirin; Z87.442 Personal history of urinary calculi; Z91.14 Patient's other noncompliance with medication regimen
CPT/HCPCS: 36415; 71020; 80053; 80061; 81001; 82553; 83880; 84484; 85025; 85610; 85730; 90674; 90732; 93306; 99285; G0008; G0009; G0378; J1644; J7120

== ENCOUNTER 2018-01-10 02:58 | Observation (INO) | payer OTHER ==
--- NOTE | 2018-01-10 03:12 | C.PDOC ---
History Of Present Illness Pt presents with chest discomfort since yesterday. It has been intermittent , but more consistent over the last few hours. Speaking in complete sentences. No f/c/n/v. Time Seen by Provider: 01/10/18 03:10 Chief Complaint (Nursing): Chest Pain History Per: Patient History/Exam Limitations: no limitations Onset/Duration Of Symptoms: Days Current Symptoms Are (Timing): Still Present Context: Other Severity: Moderate Pain Scale Rating Of: 4 Quality: Dull, Tightness Associated Symptoms: denies: Nausea, Dyspnea Modifying Factors: None Exacerbating Factors: None Alleviating Factors: None Recent travel outside of the [place]: No Additional History Per: Patient Past Medical History Reviewed: Historical Data, Nursing Documentation, Vital Signs Vital Signs: Last Vital Signs Temp 97.4 F L 01/10/18 03:04 Pulse 65 01/10/18 04:08 Resp 16 01/10/18 04:08 BP 109/78 01/10/18 04:08 Pulse Ox 97 01/10/18 04:08 - Medical History PMH: Asthma, Bronchitis, HTN (no meds), Kidney Stones, Chronic Kidney Disease Family History: States: No Known Family Hx, Diabetes - Social History Hx Tobacco Use: No Hx Alcohol Use: No Hx Substance Use: No - Immunization History Hx Tetanus Toxoid Vaccination: No Hx Influenza Vaccination: No Hx Pneumococcal Vaccination: No Review Of Systems Constitutional: Negative for: Fever, Chills Eyes: Negative for: Redness ENT: Negative for: Throat Pain Cardiovascular: Positive for: Chest Pain Respiratory: Negative for: Shortness of Breath Gastrointestinal: Negative for: Nausea, Vomiting, Abdominal Pain Genitourinary: Negative for: Dysuria Musculoskeletal: Negative for: Back Pain Skin: Negative for: Rash Neurological: Negative for: Weakness Psych: Negative for: Anxiety Physical Exam - Physical Exam Appears: Non-toxic, No Acute Distress Skin: Warm, Dry Head: Normacephalic Eye(s): bilateral: Normal Inspection Oral Mucosa: Moist Neck: Supple Chest: Symmetrical Cardiovascular: Rhythm Regular Respiratory: No Rales, No Rhonchi, No Wheezing Gastrointestinal/Abdominal: Soft, No Tenderness, No Distention, No Guarding, No Rebound Back: No CVA Tenderness Extremity: Normal ROM Extremity: Bilateral: Atraumatic, No Pedal Edema, Normal Color And Temperature Pulses: Left Dorsalis Pedis: Normal, Right Dorsalis Pedis: Normal Neurological/Psych: Oriented x3 Gait: Steady ED Course And Treatment - Laboratory Results Result Diagrams: 01/10/18 03:25 01/10/18 03:25 ECG: Interpreted By Me, Viewed By Me ECG Rhythm: Sinus Rhythm (60), Nonspecific Changes O2 Sat by Pulse Oximetry: 97 Pulse Ox Interpretation: Normal - Radiology CXR: Interpreted by Me, Viewed By Me CXR Interpretation: No: Infiltrates, Fracture, Pnemothorax Disposition Discussed With Dr.: Pedro Luis Borden Comment: accepted the pt on his service and took over the care at 5AM Doctor Will See Patient In The: ED Counseled Patient/Family Regarding: Studies Performed, Diagnosis - Disposition Disposition: HOSPITALIZED Disposition Time: 03:12 Condition: FAIR Forms: [facility] (Nigerian) - Clinical Impression Clinical Impression: Chest pain Decision To Admit - Pt Status Changed To: Hospital Disposition Of: Observation - . Bed Request Type: Telemetry Admitting Physician: Pedro Luis Borden Patient Diagnosis: Chest pain
[2018-01-10] MEDS ORDERED: Aspirin 325 mg EC Tablets PO STA (03:16)
[2018-01-10] MEDS ORDERED: Aspirin 325 mg EC Tablets PO ONE (03:27)
[2018-01-10 03:30] LABS: BASO # 0.1 K/uL (0.0-0.2); BASO % 0.9 % (0.0-2.0); EOS # 0.4 K/uL (0.0-0.7); EOS % 5.6 % (0.0-4.0); HEMOGLOBIN 13.9 g/dL (12.0-18.0); LYMPH # 2.8 K/uL (1.0-4.3); LYMPH % 36.5 % (20.0-40.0); MEAN CELL VOLUME 85.4 fL (80.0-94.0); MEAN CORPUSCULAR HEMOGLOBIN 30.2 pg (27.0-31.0); MEAN CORPUSCULAR HGB CONC 35.3 g/dL (33.0-37.0); MEAN PLATELET VOLUME 8.3 fL (7.2-11.7); MONO # 0.4 K/uL (0.0-0.8); MONO % 5.4 % (0.0-10.0); NEUT % 51.6 % (50.0-75.0); RBC 4.62 Mil/uL (4.40-5.90); RED CELL DISTRIBUTION WIDTH 13.4 % (11.5-14.5); WHITE BLOOD COUNT 7.7 K/uL (4.8-10.8)
[2018-01-10 03:41] LABS: PROTHROMBIN TIME 11.5 SECONDS (9.7-12.2)
[2018-01-10 03:50] LABS: ALB/GLOB RATIO 1.4 (1.0-2.1); ALBUMIN 3.9 g/dL (3.5-5.0); ALT/SGPT 33 U/L (21-72); AST/SGOT 28 U/L (17-59); BLOOD UREA NITROGEN 22 mg/dL (9-20); CALCIUM 8.4 mg/dl (8.6-10.4); GFR AFRICAN-AMERICAN > 60; GFR NON-AFRICAN AMERICAN > 60; HDL CHOLESTEROL 48 mg/dL (30-70)
[2018-01-10 04:01] LABS: LDL CHOLESTEROL 79 mg/dL (0-129)
[2018-01-10 04:04] LABS: B-TYPE NATRIURETIC PEPTIDE 60.6 pg/mL (0-900)
--- NOTE | 2018-01-10 05:57 | CP.PCM.HP ---
<Keaton Boone - Last Filed: 01/10/18 06:03> History of Present Illness - History of Present Illness History of Present Illness: PGY1 Medicine H+P for Dr. Borden Patient is a 57 year old male with a past medical history of asthma and HTN presents to the ED with a complaint of chest pain. The chest pain started yesterday after he finished eating dinner around 5pm while he was sitting on the couch. The pain is described as an intermittent, pressure-like pain that was located over the left side of his chest. He came in overnight because when he woke up to go to the bathroom at 1 am, he started getting the pressure-like pains more frequently. He denies any radiation of the pain. The pain has completely resolved and he has not felt it in a couple of hours. He denies any shortness of breath and normally has no restrictions with exercise. He denies fevers, chills, nausea, vomiting, diarrhea, constipation, abdominal pain, headaches, lightheadedness, dizziness, blurry vision, double vision, numbness or tingling. PMD: Neight Past medical history: Asthma Past surgical history: Denies Family: Brother diabetes Social: Denies tobacco, alcohol or illicit drug use Allergies: NKDA Medications: Lisinopril 10mg PO daily, Atorvastatin 20mg PO HS, Ventolin prn Present on Admission - Present on Admission Any Indicators Present on Admission: No Review of Systems - Review of Systems All systems: reviewed and no additional remarkable complaints except (as per HPI ) Past Patient History - Infectious Disease Hx of Infectious Diseases: None - Past Medical History & Family History Past Medical History?: Yes - Past Social History Smoking Status: Never Smoked - CARDIAC Hx Hypertension: Yes (no meds) - PULMONARY Hx Asthma: Yes Hx Bronchitis: Yes - NEUROLOGICAL Hx Neurological Disorder: No - HEENT Hx HEENT Problems: No - RENAL Hx Chronic Kidney Disease: Yes Hx Kidney Stones: Yes - ENDOCRINE/METABOLIC Hx Endocrine Disorders: No - HEMATOLOGICAL/ONCOLOGICAL Hx Blood Disorders: No - INTEGUMENTARY Hx Dermatological Problems: No - MUSCULOSKELETAL/RHEUMATOLOGICAL Hx Falls: No - GASTROINTESTINAL Hx Gastrointestinal Disorders: No Hx Liver Failure: No - GENITOURINARY/GYNECOLOGICAL Hx Genitourinary Disorders: No - PSYCHIATRIC Hx Substance Use: No - SURGICAL HISTORY Hx Surgeries: No - ANESTHESIA Hx Anesthesia: No Meds Allergies/Adverse Reactions: Allergies Allergy/AdvReac Type Severity Reaction Status Date / Time peanut Allergy SHORTNESS Verified 01/10/18 03:07 OF BREATH seasonal AdvReac ITCHING Uncoded 01/10/18 03:07 Physical Exam - Constitutional Appears: Non-toxic, No Acute Distress - Head Exam Head Exam: ATRAUMATIC, NORMOCEPHALIC - Eye Exam Eye Exam: EOMI, Normal appearance - ENT Exam ENT Exam: Mucous Membranes Moist - Respiratory Exam Respiratory Exam: Clear to Auscultation Bilateral, NORMAL BREATHING PATTERN. absent: Accessory Muscle Use, Rales, Rhonchi, Wheezes, Respiratory Distress - Cardiovascular Exam Cardiovascular Exam: REGULAR RHYTHM, +S1, +S2 - GI/Abdominal Exam GI & Abdominal Exam: Normal Bowel Sounds, Soft. absent: Distended, Firm, Guarding, Rigid, Tenderness - Extremities Exam Extremities exam: Positive for: pedal pulses present. Negative for: calf tenderness, pedal edema - Neurological Exam Neurological exam: Alert, Oriented x3 - Psychiatric Exam Psychiatric exam: Normal Affect, Normal Mood - Skin Skin Exam: Dry, Warm Results - Vital Signs Recent Vital Signs: Last Vital Signs Temp 97.4 F L 01/10/18 03:04 Pulse 65 01/10/18 04:08 Resp 16 01/10/18 04:08 BP 109/78 01/10/18 04:08 Pulse Ox 97 01/10/18 05:10 - Labs Result Diagrams: 01/10/18 03:25 01/10/18 03:25 Labs: Laboratory Results - last 24 hr 01/10/18 01/10/18 01/10/18 03:25 03:25 03:25 WBC 7.7 RBC 4.62 Hgb 13.9 D Hct 39.4 MCV 85.4 MCH 30.2 MCHC 35.3 RDW 13.4 Plt Count 228 MPV 8.3 Neut % (Auto) 51.6 Lymph % (Auto) 36.5 [place] % (Auto) 5.4 Eos % (Auto) 5.6 H Baso % (Auto) 0.9 Neut # (Auto) 4.0 Lymph # (Auto) 2.8 [place] # (Auto) 0.4 Eos # (Auto) 0.4 Baso # (Auto) 0.1 PT 11.5 INR 1.0 APTT 36 H Sodium 136 Potassium 4.4 Chloride 101 Carbon Dioxide 23 Anion Gap 16 BUN 22 H Creatinine 1.0 Est GFR ( Amer) > 60 Est GFR (Non-Af Amer) > 60 Random Glucose 95 Calcium 8.4 L Total Bilirubin 0.5 AST 28 ALT 33 Alkaline Phosphatase 78 Troponin I < 0.0120 NT-Pro-B Natriuret Pep 60.6 Total Protein 6.8 Albumin 3.9 Globulin 2.9 Albumin/Globulin Ratio 1.4 Triglycerides 149 D Cholesterol 166 LDL Cholesterol Direct 79 HDL Cholesterol 48 Assessment & Plan - Assessment and Plan (Free Text) Plan: Chest Pain - r/o ACS - RAQUEL: Negative x1 - f/u RAQUEL & EKG x2 - EKG: Normal Sinus Rhythm @60 bpm, normal axis, no ST changes - ECHO 09/27/17 - EF ~ 60%, overall normal function - f/u chest x-ray Medications: * Aspirin 81mg daily * Lisinopril 10mg PO daily * Crestor 10mg PO HS - Heart Healthy Diet - f/u TSH/free T4, hgb A1c History of HTN - Lisinopril 10mg PO daily History of Asthma - Ventolin as needed Prophylaxis - Lovenox 40mg SC Case discussed with Dr. Suha Boone PGY1 <Pedro Luis Borden P - Last Filed: 01/10/18 06:57> Results - Vital Signs Recent Vital Signs: Last Vital Signs Temp 97.5 F L 01/10/18 06:22 Pulse 61 01/10/18 06:22 Resp 20 01/10/18 06:22 BP 103/66 01/10/18 06:22 Pulse Ox 95 01/10/18 06:22 - Labs Result Diagrams: 01/10/18 03:25 01/10/18 03:25 Labs: Laboratory Results - last 24 hr 01/10/18 01/10/18 01/10/18 03:25 03:25 03:25 WBC 7.7 RBC 4.62 Hgb 13.9 D Hct 39.4 MCV 85.4 MCH 30.2 MCHC 35.3 RDW 13.4 Plt Count 228 MPV 8.3 Neut % (Auto) 51.6 Lymph % (Auto) 36.5 [place] % (Auto) 5.4 Eos % (Auto) 5.6 H Baso % (Auto) 0.9 Neut # (Auto) 4.0 Lymph # (Auto) 2.8 [place] # (Auto) 0.4 Eos # (Auto) 0.4 Baso # (Auto) 0.1 PT 11.5 INR 1.0 APTT 36 H Sodium 136 Potassium 4.4 Chloride 101 Carbon Dioxide 23 Anion Gap 16 BUN 22 H Creatinine 1.0 Est GFR ( Amer) > 60 Est GFR (Non-Af Amer) > 60 Random Glucose 95 Calcium 8.4 L Total Bilirubin 0.5 AST 28 ALT 33 Alkaline Phosphatase 78 Troponin I < 0.0120 NT-Pro-B Natriuret Pep 60.6 Total Protein 6.8 Albumin 3.9 Globulin 2.9 Albumin/Globulin Ratio 1.4 Triglycerides 149 D Cholesterol 166 LDL Cholesterol Direct 79 HDL Cholesterol 48 Attending/Attestation - Attestation I have personally seen and examined this patient.: Yes I have fully participated in the care of the patient.: Yes I have reviewed all pertinent clinical information: Yes Notes (Text): Atypical cp, only like a pulse kind of frequency, and pain like pressure when he was resting, patient denied any worsening with exertion, ekg no acute changes. H/o htn and dyslipidimia which are now controlled Plan Observe Serial trop
[2018-01-10 06:23] VITALS: RESP 20; O2SAT 95
[2018-01-10] MEDS ORDERED: Albuterol 0.083% Inhal Sol (2.5 mg/3 mL) UD INH PRN (06:56)
--- NOTE | 2018-01-10 08:45 | RAD ---
HISTORY: chest pain COMPARISON: Chest x-ray performed 09/26/17 TECHNIQUE: Chest, one view. FINDINGS: Examination limited by habitus. LUNGS: Subsegmental left basilar atelectasis. Please note that chest x-ray has limited sensitivity for the detection of pulmonary masses. PLEURA: No significant pleural effusion identified. No definite pneumothorax . CARDIOVASCULAR: Ectatic aorta. Heart size appears within limits. OSSEOUS STRUCTURES: Degenerative changes. VISUALIZED UPPER ABDOMEN: Unremarkable. OTHER FINDINGS: None. IMPRESSION: Subsegmental left basilar atelectasis.
--- NOTE | 2018-01-10 09:40 | CP.PCM.PN ---
Subjective - Date & Time of Evaluation Date of Evaluation: 01/10/18 Time of Evaluation: 09:15 - Subjective Subjective: Hospitalist Progress Note Patient was seen and examined at 9:15 AM 01/10/18 Bed 661 B Very pleasant 57 year old male (PMHx HTN ,HLD, Asthma) who presented to the ER with complaints of left sided nonradiating pressure like chest pain around 5 PM on 01/09/18 after he had eaten a meal. This pain reoccurred at 1 AM after getting up to use the bathroom and therefore he decided to come to the ER for evaluation. This pain has not occurred again since his arrival. Chest X Ray shows subsegmental left basilar atelectasis. Echocardiogram was done in September 2017 and this was unremarkable. Troponins x 3 are negative. EKG shows NSR at 60 bpm. Patient is stable for discharge with further management as outpatient. Upon FULL ROS NO dysphagia/odynopahgia NO soreness in throat NO cough NO sinus/nasal congestion NO fever/chills NO muscle aches/pains NO joint pain NO chest pain/palpations NO SOB NO abdominal pain NO n/v/d/c NO burning pain with urination NO ROMAN NO lightheadedness/dizziness NO paresthesias Exam: General: AAOX3, NAD HEENT: NCA, EOMI, PERRLA, NO cervical/supraclavicular/submandibular lymphadenopathy, NO pharyngeal erythema/exudate, Nasal Turbinates are nonerythematous/nonedematous, Oral Mucosa is moist Cardio: NS1 and NS2, NO M/R/G Resp: CTA B/L, NO R/R/W GI: BSx4, Soft, NT, NO HSM, NO guarding/rebound tenderness Ext: Pulses are strong and equal, Capillary Refill is 2 seconds, NO edema Neuro: CN II through XII are grossly intact Assessments/Plan: 1). Atypical Chest Pain 2). Hx HTN 3). Hx HLD 4). Hx Asthma The following instructions were explained to patient and a copy will need to be provided to him upon discharge: 1). Schedule follow up with the [facility] located on Floor B of [facility] ([address] [place] [address] in [place], [place]) by calling [phone] for an appointment to take place in the next 7 to 10 days. 2). You were provided with prescriptions for the following medications as you stated that you did not have enough until your appointment with the [facility]: Atorvastatin 40 mg, 1 tablet by mouth 1x/day (dinner), Dispense #30, NO refills Lisinopril 10 mg, 1 tablet by mouth 1x/day (breakfast), Dispense #30, NO refills Aspirin 81 mg, 1 tablet chew by mouth 1x/day (dinner), Dispense #30, NO refills Albuterol 90 mcg/actuation, 2 Puffs Inhalation by mouth every 6 hours ONLY NEEDED for shortness of breath, Dispense #1, NO refills 3). After your meals (breakfast, lunch, dinner) DO NOT lay down or recline for at least 1 hour. 4). Please take care and be well. Jim Venegas D.O. Objective - Vital Signs/Intake and Output Vital Signs (last 24 hours): Temp Pulse Resp BP Pulse Ox 97.7 F 58 L 20 132/80 95 01/10/18 07:00 01/10/18 07:00 01/10/18 07:00 01/10/18 07:00 01/10/18 07:49 - Medications Medications: Current Medications Albuterol Sulfate (Albuterol 0.083% Inhal Fidelina (2.5 Mg/3 Ml) Ud) 2.5 mg INH RQ6 PRN PRN Reason: Shortness of Breath Aspirin (Aspirin Chewable) 81 mg PO DAILY [facility] Enoxaparin Sodium (Lovenox) 40 mg SC DAILY AD[facility]N Lisinopril (Zestril) 10 mg PO DAILY [facility] Rosuvastatin Calcium (Crestor) 10 mg PO HS ADRIÁN - Labs Labs: 01/10/18 03:25 01/10/18 03:25 PT 11.5 SECONDS (9.7-12.2) 01/10/18 03:25 INR 1.0 01/10/18 03:25 APTT 36 SECONDS (21-34) H 01/10/18 03:25
[2018-01-10] MEDS ORDERED: Enoxaparin 40 mg Syringe SC SCH (10:00)
[2018-01-10 11:52] LABS: CK-MB 3.73 ng/mL (0.0-3.38)
[2018-01-10 16:03] LABS: CK-MB 3.62 ng/mL (0.0-3.38)
--- NOTE | 2018-01-10 17:03 | CP.PCM.DIS ---
Provider - Provider Date of Admission: 01/10/18 05:05 Attending physician: Pedro Luis Borden MD Primary care physician: [facility] Consults: None Time Spent in preparation of Discharge (in minutes): 40 Hospital Course - Lab Results Lab Results: Most Recent Lab Values WBC 7.7 K/uL (4.8-10.8) 01/10/18 03:25 RBC 4.62 Mil/uL (4.40-5.90) 01/10/18 03:25 Hgb 13.9 g/dL (12.0-18.0) D 01/10/18 03:25 Hct 39.4 % (35.0-51.0) 01/10/18 03:25 MCV 85.4 fL (80.0-94.0) 01/10/18 03:25 MCH 30.2 pg (27.0-31.0) 01/10/18 03:25 MCHC 35.3 g/dL (33.0-37.0) 01/10/18 03:25 RDW 13.4 % (11.5-14.5) 01/10/18 03:25 Plt Count 228 K/uL (130-400) 01/10/18 03:25 MPV 8.3 fL (7.2-11.7) 01/10/18 03:25 Neut % (Auto) 51.6 % (50.0-75.0) 01/10/18 03:25 Lymph % (Auto) 36.5 % (20.0-40.0) 01/10/18 03:25 [place] % (Auto) 5.4 % (0.0-10.0) 01/10/18 03:25 Eos % (Auto) 5.6 % (0.0-4.0) H 01/10/18 03:25 Baso % (Auto) 0.9 % (0.0-2.0) 01/10/18 03:25 Neut # (Auto) 4.0 K/uL (1.8-7.0) 01/10/18 03:25 Lymph # (Auto) 2.8 K/uL (1.0-4.3) 01/10/18 03:25 [place] # (Auto) 0.4 K/uL (0.0-0.8) 01/10/18 03:25 Eos # (Auto) 0.4 K/uL (0.0-0.7) 01/10/18 03:25 Baso # (Auto) 0.1 K/uL (0.0-0.2) 01/10/18 03:25 PT 11.5 SECONDS (9.7-12.2) 01/10/18 03:25 INR 1.0 01/10/18 03:25 APTT 36 SECONDS (21-34) H 01/10/18 03:25 Sodium 136 mmol/L (132-148) 01/10/18 03:25 Potassium 4.4 mmol/L (3.6-5.2) 01/10/18 03:25 Chloride 101 mmol/L (98-107) 01/10/18 03:25 Carbon Dioxide 23 mmol/L (22-30) 01/10/18 03:25 Anion Gap 16 (10-20) 01/10/18 03:25 BUN 22 mg/dL (9-20) H 01/10/18 03:25 Creatinine 1.0 mg/dL (0.8-1.5) 01/10/18 03:25 Est GFR ( Amer) > 60 01/10/18 03:25 Est GFR (Non-Af Amer) > 60 01/10/18 03:25 Random Glucose 95 mg/dL (75-110) 01/10/18 03:25 Calcium 8.4 mg/dl (8.6-10.4) L 01/10/18 03:25 Total Bilirubin 0.5 mg/dL (0.2-1.3) 01/10/18 03:25 AST 28 U/L (17-59) 01/10/18 03:25 ALT 33 U/L (21-72) 01/10/18 03:25 Alkaline Phosphatase 78 U/L (38-126) 01/10/18 03:25 Total Creatine Kinase 230 U/L (55-170) H 01/10/18 15:33 CK-MB (Mass) 3.62 ng/mL (0.0-3.38) H 01/10/18 15:33 Troponin I < 0.0120 ng/mL (0.00-0.120) 01/10/18 15:33 NT-Pro-B Natriuret Pep 60.6 pg/mL (0-900) 01/10/18 03:25 Total Protein 6.8 g/dL (6.3-8.3) 01/10/18 03:25 Albumin 3.9 g/dL (3.5-5.0) 01/10/18 03:25 Globulin 2.9 gm/dL (2.2-3.9) 01/10/18 03:25 Albumin/Globulin Ratio 1.4 (1.0-2.1) 01/10/18 03:25 Triglycerides 149 mg/dL (0-149) D 01/10/18 03:25 Cholesterol 166 mg/dL (0-199) 01/10/18 03:25 LDL Cholesterol Direct 79 mg/dL (0-129) 01/10/18 03:25 HDL Cholesterol 48 mg/dL (30-70) 01/10/18 03:25 Free T4 0.93 ng/dL (0.78-2.19) 01/10/18 11:19 TSH 3rd Generation 3.66 mIU/L (0.46-4.68) 01/10/18 11:19 - Hospital Course Hospital Course: Hospitalist Discharge Note Patient was seen and examined at 9:15 AM 01/10/18 Bed 661 B Very pleasant 57 year old male (PMHx HTN ,HLD, Asthma) who presented to the ER earlier this morning with complaints of left sided nonradiating pressure like chest pain around 5 PM on 01/09/18 after he had eaten a meal. This pain reoccurred at 1 AM after getting up to use the bathroom and therefore he decided to come to the ER for evaluation. This pain has not occurred again since his arrival. Chest X Ray shows subsegmental left basilar atelectasis. Echocardiogram was done in September 2017 and this was unremarkable. Troponins x 3 are negative. EKG shows NSR at 60 bpm. Patient is stable for discharge with further management as outpatient. Please see below for discharge instructions. Upon FULL ROS NO dysphagia/odynopahgia NO soreness in throat NO cough NO sinus/nasal congestion NO fever/chills NO muscle aches/pains NO joint pain NO chest pain/palpations NO SOB NO abdominal pain NO n/v/d/c NO burning pain with urination NO ROMAN NO lightheadedness/dizziness NO paresthesias Exam: General: AAOX3, NAD HEENT: NCA, EOMI, PERRLA, NO cervical/supraclavicular/submandibular lymphadenopathy, NO pharyngeal erythema/exudate, Nasal Turbinates are nonerythematous/nonedematous, Oral Mucosa is moist Cardio: NS1 and NS2, NO M/R/G Resp: CTA B/L, NO R/R/W GI: BSx4, Soft, NT, NO HSM, NO guarding/rebound tenderness Ext: Pulses are strong and equal, Capillary Refill is 2 seconds, NO edema Neuro: CN II through XII are grossly intact Assessments/Plan: 1). Atypical Chest Pain 2). Hx HTN 3). Hx HLD 4). Hx Asthma The following instructions were explained to patient and a copy will need to be provided to him upon discharge: 1). Schedule follow up with the [facility] located on Floor B of [facility] ([address] [place] [address] in [place], [place]) by calling [phone] for an appointment to take place in the next 7 to 10 days. 2). You were provided with prescriptions for the following medications as you stated that you did not have enough until your appointment with the [facility]: Atorvastatin 40 mg, 1 tablet by mouth 1x/day (dinner), Dispense #30, NO refills Lisinopril 10 mg, 1 tablet by mouth 1x/day (breakfast), Dispense #30, NO refills Aspirin 81 mg, 1 tablet chew by mouth 1x/day (dinner), Dispense #30, NO refills Albuterol 90 mcg/actuation, 2 Puffs Inhalation by mouth every 6 hours ONLY NEEDED for shortness of breath, Dispense #1, NO refills 3). After your meals (breakfast, lunch, dinner) DO NOT lay down or recline for at least 1 hour. 4). Please take care and be well. Jim Venegas D.O. Discharge Exam - Head Exam Head Exam: ATRAUMATIC, NORMOCEPHALIC Discharge Plan - Discharge Medications Prescriptions: Albuterol HFA [Ventolin HFA 90 mcg/actuation (8 g)] 2 puff IH [id number] #1 puff Aspirin 81 mg PO DAILY #30 tab.chew Atorvastatin [Lipitor] 40 mg PO DAILY #30 tab Lisinopril [Prinivil] 10 mg PO DAILY #30 tablet - Follow Up Plan Condition: FAIR Disposition: HOME/ ROUTINE Additional Instructions: The following instructions were explained to patient and a copy will need to be provided to him upon discharge: 1). Schedule follow up with the [facility] located on Floor B of [facility] ([address] [place] [address] in [place], [place]) by calling [phone] for an appointment to take place in the next 10 to 14 days. 2). You were provided with prescriptions for the following medications as you stated that you did not have enough until your appointment with the [facility]: Atorvastatin 40 mg, 1 tablet by mouth 1x/day (dinner), Dispense #30, NO refills Lisinopril 10 mg, 1 tablet by mouth 1x/day (breakfast), Dispense #30, NO refills Aspirin 81 mg, 1 tablet chew by mouth 1x/day (dinner), Dispense #30, NO refills Albuterol 90 mcg/actuation, 2 Puffs Inhalation by mouth every 6 hours ONLY NEEDED for shortness of breath, Dispense #1, NO refills 3). After your meals (breakfas, lunch, dinner) DO NOT lay down or recline for at least 1 hour. 4). Please take care and be well. Jim Venegas D.O.
[2018-01-10 18:44] VITALS: BP 123/84; PULSE 61; TEMP 97.6
--- NOTE | 2018-01-12 20:23 | CARD ---
APPROVED REPORT EKG Measurement Heart [id number] <Conclusion> Normal sinus rhythm Normal ECG
--- NOTE | 2018-01-12 20:25 | CARD ---
APPROVED REPORT EKG Measurement Heart [id number] <Conclusion> Sinus bradycardia with sinus arrhythmia Otherwise normal ECG
--- NOTE | 2018-01-12 20:27 | CARD ---
APPROVED REPORT EKG Measurement Heart [id number] CA [id number] <Conclusion> Normal sinus rhythm Normal ECG
== END 2018-01-10 19:33 | disposition home or self-care (01) ==
LOC: C.ER 02:58 → C.6T 05:05
PROVIDERS: ADMIT Internal Medicine; ATTEND Internal Medicine
DX: R07.89 Other chest pain (principal); J45.909 Unspecified asthma, uncomplicated; N18.9 Chronic kidney disease, unspecified; I12.9 Hypertensive chronic kidney disease with stage 1 through stage 4 chronic kidney disease, or unspecified chronic kidney disease; Z87.442 Personal history of urinary calculi; Z91.010 Allergy to peanuts; E78.5 Hyperlipidemia, unspecified; J98.11 Atelectasis
CPT/HCPCS: 71045; 80053; 80061; 83036; 83880; 84439; 84443; 84484; 85025; 85610; 85730; 99285; G0378; J1650

== ENCOUNTER 2018-02-14 14:43 | Emergency (ER) | payer OTHER ==
[2018-02-14 14:49] VITALS: BP 166/110; PULSE 75; TEMP 98; O2SAT 98
--- NOTE | 2018-02-14 15:06 | C.PDOC ---
History Of Present Illness 57 year old male presents to the emergency department requesting a refill for his medications Lysinopril and Atorvastatin. Patient is not exhibiting any current symptoms. Time Seen by Provider: 02/14/18 14:58 Chief Complaint (Nursing): Med Refill Past Medical History Vital Signs: Last Vital Signs Temp 98 F 02/14/18 14:48 Pulse 75 02/14/18 14:48 Resp 18 02/14/18 14:48 BP 166/110 H 02/14/18 14:48 Pulse Ox 98 02/14/18 14:48 - Medical History PMH: Asthma, Bronchitis, HTN, Kidney Stones, Chronic Kidney Disease Family History: States: Unknown Family Hx, Diabetes - Social History Hx Tobacco Use: No Hx Alcohol Use: No Hx Substance Use: No - Immunization History Hx Tetanus Toxoid Vaccination: No Hx Influenza Vaccination: No Hx Pneumococcal Vaccination: No ED Course And Treatment O2 Sat by Pulse Oximetry: 98 Disposition - Disposition
--- NOTE | 2018-02-14 15:07 | C.PDOC ---
History Of Present Illness 57 year old male presents to the emergency department requesting a refill for his medications Lysinopril and Atorvastatin. Patient is not exhibiting any symptoms at the moment and denies a headache. Time Seen by Provider: 02/14/18 14:58 Chief Complaint (Nursing): Med Refill History Per: Patient History/Exam Limitations: no limitations Past Medical History Reviewed: Historical Data, Nursing Documentation, Vital Signs Vital Signs: Last Vital Signs Temp 98 F 02/14/18 14:48 Pulse 75 02/14/18 14:48 Resp 18 02/14/18 14:48 BP 166/110 H 02/14/18 14:48 Pulse Ox 98 02/14/18 15:07 - Medical History PMH: Asthma, Bronchitis, HTN, Kidney Stones, Chronic Kidney Disease Surgical History: No Surg Hx Family History: States: Diabetes - Social History Hx Tobacco Use: No Hx Alcohol Use: No Hx Substance Use: No - Immunization History Hx Tetanus Toxoid Vaccination: No Hx Influenza Vaccination: No Hx Pneumococcal Vaccination: No Review Of Systems Except As Marked, All Systems Reviewed And Found Negative. Neurological: Negative for: Headache ED Course And Treatment O2 Sat by Pulse Oximetry: 98 Disposition Counseled Patient/Family Regarding: Diagnosis, Need For Followup, Rx Given - Disposition Referrals: [facility] [Outside] [facility] [Outside] Disposition: HOME/ ROUTINE Disposition Time: 15:04 Condition: GOOD Additional Instructions: follow up clinic for further refills Prescriptions: Atorvastatin [Lipitor] 20 mg PO DAILY #30 tab Lisinopril [Zestril] 10 mg PO DAILY #30 tab Instructions: Pulmonary Hypertension, Child Forms: [facility] (Swedish) Print Language: GRENADIAN - Clinical Impression Clinical Impression: Medication refill - Scribe Statement The provider has reviewed the documentation as recorded by the Scribe (Bob Jasmine) Provider Attestation: All medical record entries made by the Scribe were at my direction and personally dictated by me. I have reviewed the chart and agree that the record accurately reflects my personal performance of the history, physical exam, medical decision making, and the department course for this patient. I have also personally directed, reviewed, and agree with the discharge instructions and disposition.
[2018-02-14 15:16] VITALS: RESP 16
== END 2018-02-14 15:15 | disposition home or self-care (01) ==
LOC: C.ER 14:43
DX: Z76.0 Encounter for issue of repeat prescription (principal); I10 Essential (primary) hypertension; Z87.891 Personal history of nicotine dependence

== ENCOUNTER 2018-03-08 01:21 | Observation (INO) | payer OTHER ==
[2018-03-08 01:43] VITALS: TEMP 97.9
[2018-03-08] MEDS ORDERED: Albuterol-Ipratrop 3 mg / 0.5 (3 ml) UD INH STA ×3 (01:48)
[2018-03-08] MEDS ORDERED: MethylPREDNISolone 40 mg Vial IVP STA (01:48)
--- NOTE | 2018-03-08 01:51 | C.PDOC ---
History Of Present Illness 57 y/o male with a history of asthma presents to the ED for asthma exacerbation. Patient believes it was brought on by his allergies and was using his nebulizer at home with no relief. Denies any pain. PMD: none provided Time Seen by Provider: 03/08/18 01:34 Chief Complaint (Nursing): Shortness Of Breath History Per: Patient History/Exam Limitations: no limitations Onset/Duration Of Symptoms: Hrs Current Symptoms Are (Timing): Still Present Associated Symptoms: denies: Chest Pain Recent travel outside of the [place]: No Past Medical History Vital Signs: Last Vital Signs Temp 97.9 F 03/08/18 01:36 Pulse 98 H 03/08/18 05:55 Resp 20 03/08/18 05:55 BP 152/99 H 03/08/18 05:55 Pulse Ox 99 03/08/18 05:55 - Medical History PMH: Asthma, Bronchitis, HTN, Kidney Stones, Chronic Kidney Disease Surgical History: No Surg Hx Family History: States: Unknown Family Hx, Diabetes - Social History Hx Tobacco Use: No Hx Alcohol Use: No Hx Substance Use: No - Immunization History Hx Tetanus Toxoid Vaccination: No Hx Influenza Vaccination: No Hx Pneumococcal Vaccination: No Review Of Systems Except As Marked, All Systems Reviewed And Found Negative. Constitutional: Negative for: Other (pain) Respiratory: Positive for: Other (asthma exacerbation) Physical Exam - Physical Exam Appears: Well, No Acute Distress Skin: Normal Color, Warm, Dry Head: Atraumatic, Normacephalic Eye(s): bilateral: Normal Inspection, PERRL, EOMI Nose: Normal Throat: Normal Neck: Normal Cardiovascular: Rhythm Regular, No Murmur Respiratory: Wheezing (diffused bilaterally) Gastrointestinal/Abdominal: Normal Exam Back: Normal Inspection, No CVA Tenderness, No Vertebral Tenderness Extremity: Normal ROM, No Pedal Edema Neurological/Psych: Oriented x3 ED Course And Treatment - Laboratory Results Result Diagrams: 03/08/18 02:15 03/08/18 02:15 O2 Sat by Pulse Oximetry: 97 (RA) Pulse Ox Interpretation: Normal Medical Decision Making Medical Decision Making: asthma- nebs steriods labs reassess cxr neg as read by me. persistent wheezing. accepte by dr srinivasan. Disposition - Disposition Disposition: HOME/ ROUTINE Disposition Time: 06:41 Condition: STABLE - Clinical Impression Clinical Impression: Asthma
[2018-03-08] MEDS ORDERED: Albuterol-Ipratrop 3 mg / 0.5 (3 ml) UD ONE (02:00)
[2018-03-08 02:21] LABS: BASO # 0.1 K/uL (0.0-0.2); BASO % 1.1 % (0.0-2.0); EOS # 1.5 K/uL (0.0-0.7); EOS % 17.6 % (0.0-4.0); HEMOGLOBIN 13.5 g/dL (12.0-18.0); LYMPH # 2.8 K/uL (1.0-4.3); LYMPH % 31.9 % (20.0-40.0); MEAN CELL VOLUME 85.9 fL (80.0-94.0); MEAN CORPUSCULAR HEMOGLOBIN 29.9 pg (27.0-31.0); MEAN CORPUSCULAR HGB CONC 34.8 g/dL (33.0-37.0); MEAN PLATELET VOLUME 8.5 fL (7.2-11.7); MONO # 0.4 K/uL (0.0-0.8); MONO % 4.8 % (0.0-10.0); NEUT # 3.9 K/uL (1.8-7.0); NEUT % 44.6 % (50.0-75.0); RBC 4.52 Mil/uL (4.40-5.90); WHITE BLOOD COUNT 8.8 K/uL (4.8-10.8)
[2018-03-08 02:26] LABS: PROTHROMBIN TIME 11.3 SECONDS (9.7-12.2)
[2018-03-08 02:30] LABS: ALB/GLOB RATIO 1.2 (1.0-2.1); ALBUMIN 3.9 g/dL (3.5-5.0); ALT/SGPT 29 U/L (21-72); AST/SGOT 31 U/L (17-59); BLOOD UREA NITROGEN 22 mg/dL (9-20); CALCIUM 8.5 mg/dl (8.6-10.4); GFR AFRICAN-AMERICAN > 60; GFR NON-AFRICAN AMERICAN 57
[2018-03-08] MEDS ORDERED: Sodium Chloride 0.9% 1,000 ML IV SCH (03:15)
--- NOTE | 2018-03-08 03:22 | CP.PCM.HP ---
History of Present Illness - History of Present Illness History of Present Illness: Patient is a 57M with a PMH of HTN and Asthma who comes to the ED with worsening SOB since Friday. States that on Friday the pollen outside started to bother his breathing and he began to become SOB. Thru the weak his SOB worsened until today when he was using his albuterol inhaler every 3 hours with no relief so he decided to come to the ED. He denies any associated symptoms like fevers, chills, chest pain but is complaining of URI symptoms such as non productive cough as well as nasal congestion. Denies nausea, vomiting, diarrheal. Has no prior ICU admissions and patient has never been intubated before. PMH: HTN, Asthma PSH: None FH: Brother = diabetes SH: denies smoking, drinking or drug use All: None Full code Present on Admission - Present on Admission Any Indicators Present on Admission: No Review of Systems - Review of Systems Review of Systems: per HPI Past Patient History - Infectious Disease Hx of Infectious Diseases: None - Past Medical History & Family History Past Medical History?: Yes - Past Social History Smoking Status: Former Smoker - CARDIAC Hx Hypertension: Yes - PULMONARY Hx Asthma: Yes Hx Bronchitis: Yes - NEUROLOGICAL Hx Neurological Disorder: No - HEENT Hx HEENT Problems: No - RENAL Hx Chronic Kidney Disease: Yes Hx Kidney Stones: Yes - ENDOCRINE/METABOLIC Hx Endocrine Disorders: No - HEMATOLOGICAL/ONCOLOGICAL Hx Blood Disorders: No - INTEGUMENTARY Hx Dermatological Problems: No - MUSCULOSKELETAL/RHEUMATOLOGICAL Hx Falls: No - GASTROINTESTINAL Hx Gastrointestinal Disorders: No Hx Liver Failure: No - GENITOURINARY/GYNECOLOGICAL Hx Genitourinary Disorders: No - PSYCHIATRIC Hx Substance Use: No - SURGICAL HISTORY Hx Surgeries: No - ANESTHESIA Hx Anesthesia: No Meds Allergies/Adverse Reactions: Allergies Allergy/AdvReac Type Severity Reaction Status Date / Time peanut Allergy SHORTNESS Verified 02/14/18 14:47 OF BREATH seasonal AdvReac ITCHING Uncoded 02/14/18 14:47 Physical Exam - Constitutional Appears: Well - Head Exam Head Exam: ATRAUMATIC, NORMAL INSPECTION, NORMOCEPHALIC - Eye Exam Eye Exam: EOMI, Normal appearance, PERRL Pupil Exam: NORMAL ACCOMODATION, PERRL - ENT Exam ENT Exam: Mucous Membranes Moist, Normal Exam - Neck Exam Neck exam: Positive for: Normal Inspection - Respiratory Exam Respiratory Exam: Clear to Auscultation Bilateral, NORMAL BREATHING PATTERN - Cardiovascular Exam Cardiovascular Exam: REGULAR RHYTHM - GI/Abdominal Exam GI & Abdominal Exam: Normal Bowel Sounds, Soft. absent: Tenderness - Extremities Exam Extremities exam: Positive for: normal inspection - Back Exam Back exam: NORMAL INSPECTION - Neurological Exam Neurological exam: Alert, CN II-XII Intact, Normal Gait, Oriented x3, Reflexes Normal - Psychiatric Exam Psychiatric exam: Normal Affect, Normal Mood - Skin Skin Exam: Dry, Intact, Normal Color, Warm Results - Vital Signs Recent Vital Signs: Last Vital Signs Temp 97.9 F 03/08/18 01:36 Pulse 88 03/08/18 01:36 Resp 24 03/08/18 01:36 BP 127/93 H 03/08/18 01:36 Pulse Ox 97 03/08/18 02:13 - Labs Result Diagrams: 03/08/18 02:15 03/08/18 02:15 Labs: Laboratory Results - last 24 hr 03/08/18 03/08/18 03/08/18 02:15 02:15 02:15 WBC 8.8 RBC 4.52 Hgb 13.5 Hct 38.8 MCV 85.9 MCH 29.9 MCHC 34.8 RDW 13.0 Plt Count 217 MPV 8.5 Neut % (Auto) 44.6 L Lymph % (Auto) 31.9 [place] % (Auto) 4.8 Eos % (Auto) 17.6 H Baso % (Auto) 1.1 Neut # (Auto) 3.9 Lymph # (Auto) 2.8 [place] # (Auto) 0.4 Eos # (Auto) 1.5 H Baso # (Auto) 0.1 PT 11.3 INR 1.0 APTT 40 H Sodium 142 Potassium 4.2 Chloride 106 Carbon Dioxide 23 Anion Gap 16 BUN 22 H Creatinine 1.3 Est GFR ( Amer) > 60 Est GFR (Non-Af Amer) 57 Random Glucose 95 Calcium 8.5 L Total Bilirubin 0.4 AST 31 ALT 29 Alkaline Phosphatase 87 Total Protein 7.2 Albumin 3.9 Globulin 3.4 Albumin/Globulin Ratio 1.2 Assessment & Plan (1) Asthma exacerbation Assessment and Plan: most likely 2/2 to pollen triggering asthma exacerbation No wheezing on exam so I dont believe additional IV steroids are needed Duonebs PRN Robitussin for the cough and congestion PO Prednisone Status: Acute Priority: High (2) HTN (hypertension) Assessment and Plan: Zestril 10mg PO QD Status: Chronic Priority: Medium (3) Hyperlipidemia Assessment and Plan: Crestor 10 PO HS Status: Chronic Priority: Medium (4) Prophylactic measure Assessment and Plan: Lovenox SCD Protonix Status: Acute
[2018-03-08] MEDS ORDERED: guaiFENesin-Codeine 100-10mg/5ml Syrup (10ml) UD PO SCH (03:30)
[2018-03-08] MEDS ORDERED: Albuterol-Ipratrop 3 mg / 0.5 (3 ml) UD INH SCH (04:00)
[2018-03-08 06:35] VITALS: RESP 20
[2018-03-08 07:08] VITALS: BP 132/78; PULSE 88; O2SAT 99
[2018-03-08 08:06] LABS: BASO # 0.1 K/uL (0.0-0.2); BASO % 0.5 % (0.0-2.0); EOS % 0.1 % (0.0-4.0); HEMOGLOBIN 13.9 g/dL (12.0-18.0); LYMPH # 1.1 K/uL (1.0-4.3); MEAN CORPUSCULAR HEMOGLOBIN 31.4 pg (27.0-31.0); MEAN CORPUSCULAR HGB CONC 35.1 g/dL (33.0-37.0); MEAN PLATELET VOLUME 8.6 fL (7.2-11.7); MONO # 0.6 K/uL (0.0-0.8); MONO % 6.7 % (0.0-10.0); NEUT # 7.9 K/uL (1.8-7.0); NEUT % 81.7 % (50.0-75.0); RBC 4.4 Mil/uL (4.40-5.90); RED CELL DISTRIBUTION WIDTH 12.4 % (11.5-14.5); WHITE BLOOD COUNT 9.7 K/uL (4.8-10.8)
[2018-03-08 08:12] LABS: MEAN CELL VOLUME 89.6 fL (80.0-94.0)
--- NOTE | 2018-03-08 09:18 | RAD ---
PROCEDURE: CHEST RADIOGRAPH, 1 VIEW HISTORY: SOB COMPARISON: 01/10/2018 FINDINGS: LUNGS: Clear. PLEURA: No pneumothorax or pleural fluid seen. CARDIOVASCULAR: Normal. OSSEOUS STRUCTURES: No significant abnormalities. VISUALIZED UPPER ABDOMEN: Normal. OTHER FINDINGS: None. IMPRESSION: No active disease.
[2018-03-08] MEDS ORDERED: Enoxaparin 40 mg Syringe SC SCH (10:00)
== END 2018-03-08 06:30 | disposition left against medical advice (07) ==
LOC: C.ER 01:21 → C.3T 02:44
PROVIDERS: ADMIT Internal Medicine; ATTEND Internal Medicine
DX: J45.901 Unspecified asthma with (acute) exacerbation (principal); Z87.442 Personal history of urinary calculi; I12.9 Hypertensive chronic kidney disease with stage 1 through stage 4 chronic kidney disease, or unspecified chronic kidney disease; N18.9 Chronic kidney disease, unspecified; Z87.891 Personal history of nicotine dependence; Z91.010 Allergy to peanuts; E78.5 Hyperlipidemia, unspecified
CPT/HCPCS: 71045; 80053; 83735; 84100; 85025; 85610; 85730; 96374; G0378; J2920; J7040

== ENCOUNTER 2018-11-10 18:42 | Emergency (ER) | payer SELFPAY ==
[2018-11-10 18:42] VITALS: BMI 28.2
--- NOTE | 2018-11-10 22:27 | C.PDOC ---
History Of Present Illness 58 year old male presents to the ED c/o small lump on his left breast for the past 2 days. Patient states he feels palpitations in the lump but they go away once he rubs the area. Patient states no other symptoms. Patient denies fever, chills, CP, SOB, palpitations, injury, fall, trauma, rash,weakness, numbness. Chief Complaint (Nursing): Chest Pain History Per: Patient History/Exam Limitations: no limitations Onset/Duration Of Symptoms: Days (3) Current Symptoms Are (Timing): Still Present Quality: "Pain" Recent travel outside of the [place]: No Additional History Per: Patient Past Medical History Reviewed: Historical Data, Nursing Documentation, Vital Signs Vital Signs: Last Vital Signs Temp 97.5 F L 11/10/18 18:49 Pulse 73 11/10/18 20:50 Resp 20 11/10/18 18:49 BP 146/76 11/10/18 20:50 Pulse Ox 97 11/10/18 18:49 - Medical History PMH: Asthma, Bronchitis, HTN, Hypercholesterolemia, Kidney Stones, Chronic Kidney Disease Surgical History: No Surg Hx Family History: States: Unknown Family Hx, Diabetes - Social History Hx Tobacco Use: No Hx Alcohol Use: No Hx Substance Use: No - Immunization History Hx Tetanus Toxoid Vaccination: Yes Hx Influenza Vaccination: No Hx Pneumococcal Vaccination: No Review Of Systems Constitutional: Negative for: Fever, Chills Cardiovascular: Negative for: Chest Pain, Palpitations Respiratory: Negative for: Shortness of Breath Gastrointestinal: Negative for: Nausea, Vomiting, Abdominal Pain Skin: Positive for: Other (lump) Neurological: Negative for: Weakness, Numbness Physical Exam - Physical Exam Appears: Non-toxic, No Acute Distress Skin: Normal Color, Warm, Dry Head: Atraumatic, Normacephalic Eye(s): bilateral: Normal Inspection Oral Mucosa: Moist Neck: Normal ROM, Supple Chest: Symmetrical, Other (small mobile nodule on the RLQ of her left breast. No nipple discharge, no skin changes) Cardiovascular: Rhythm Regular Respiratory: Normal Breath Sounds, No Rales, No Rhonchi, No Wheezing Gastrointestinal/Abdominal: Soft, No Tenderness, No Guarding, No Rebound Extremity: Normal ROM, No Tenderness, No Swelling Neurological/Psych: Oriented x3, Normal Speech, Normal Cognition Gait: Steady ED Course And Treatment ECG: Interpreted By Me, Viewed By Me ECG Rhythm: Sinus Rhythm ECG Interpretation: Normal Interpretation Of ECG: Normal axis, normal intervals Rate From EC (BPM) O2 Sat by Pulse Oximetry: 97 (ON RA) Pulse Ox Interpretation: Normal Medical Decision Making Medical Decision Making: Plan: * EKG Patient denies any other complaint, no CP, SOB, palpitations. EKG was discussed with patient. Patient was advised to follow up with clinic for further evaluation of his symptoms. Patient understands and agrees with the plan. Disposition Counseled Patient/Family Regarding: Studies Performed, Diagnosis, Need For Followup - Disposition Referrals: [facility] [Outside] [facility] [Outside] Disposition: HOME/ ROUTINE Disposition Time: 22:26 Condition: GOOD Additional Instructions: VALERIE LOZANO, thank you for letting us take care of you today. Your provider was Margi Roman MD and you were treated for CHEST PAIN. The emergency medical care you received today was directed at your acute symptoms. If you were prescribed any medication, please fill it and take as directed. It may take several days for your symptoms to resolve. Return to the Emergency Department if your symptoms worsen, do not improve, or if you have any other problems. Please contact your doctor or call one of the physicians/clinics you have been referred to that are listed on the Patient Visit Information form that is inc luded in your discharge packet. Bring any paperwork you were given at discharge with you along with any medications you are taking to your follow up visit. Our treatment cannot replace ongoing medical care by a primary care provider outside of the emergency department. Thank you for allowing the [facility] team to be part of your care today. If you had an X-Ray or CT scan: A Radiologist will review the ED reading if any change in treatment is needed we will contact you. If you had a blood, urine, or wound culture: It will take several days for the results, if any change in treatment is needed we will contact you. If you had an STI test: It will take 48 hours for the results. Please call after 1 week if you have not heard back. Instructions: Common Breast Problems Forms: Gen Discharge Inst Ghanaian, [employer] (Ghanaian) Print Language: PUERTO RICAN - POA Present On Arrival: None - Clinical Impression Clinical Impression: Breast nodule - Scribe Statement The provider has reviewed the documentation as recorded by the Scribe Clyde Prince All medical record entries made by the Scriblidia were at my direction and personally dictated by me. I have reviewed the chart and agree that the record accurately reflects my personal performance of the history, physical exam, medical decision making, and the department course for this patient. I have also personally directed, reviewed, and agree with the discharge instructions and disposition.
[2018-11-10 23:08] VITALS: BP 138/71; PULSE 72; RESP 18; TEMP 98.2; O2SAT 99
== END 2018-11-10 23:00 | disposition home or self-care (01) ==
LOC: C.ER 18:42
DX: N63.20 Unspecified lump in the left breast, unspecified quadrant (principal); I12.9 Hypertensive chronic kidney disease with stage 1 through stage 4 chronic kidney disease, or unspecified chronic kidney disease; N18.9 Chronic kidney disease, unspecified; E78.00 Pure hypercholesterolemia, unspecified

== ENCOUNTER 2018-12-10 10:07 | Outpatient (CLI) | payer SELFPAY | END 2018-12-10 10:08 | disposition home or self-care (01) | LOC: C.USIC 10:07 | DX: N63.24 Unspecified lump in the left breast, lower inner quadrant (principal) ==

== ENCOUNTER 2019-02-26 17:43 | Emergency (ER) | payer OTHER, SELFPAY ==
[2019-02-26 18:04] VITALS: BMI 29.0
[2019-02-26 18:08] VITALS: RESP 18
[2019-02-26] MEDS ORDERED: Albuterol-Ipratrop 3 mg / 0.5 (3 ml) UD ONE (18:11)
[2019-02-26] MEDS ORDERED: Albuterol 0.083% Inhal Sol (2.5 mg/3 mL) UD INH ONE (18:52)
[2019-02-26 19:19] LABS: BASO # 0.1 K/uL (0.0-0.2); BASO % 1.2 % (0.0-2.0); LYMPH % 34.8 % (20.0-40.0); MEAN CELL VOLUME 86.4 fL (80.0-94.0); MEAN CORPUSCULAR HEMOGLOBIN 29.6 pg (27.0-31.0); MEAN CORPUSCULAR HGB CONC 34.2 g/dL (33.0-37.0); MEAN PLATELET VOLUME 7.8 fL (7.2-11.7); MONO # 0.4 K/uL (0.0-0.8); MONO % 4.4 % (0.0-10.0); NEUT % 47.6 % (50.0-75.0); RBC 5.06 Mil/uL (4.40-5.90); RED CELL DISTRIBUTION WIDTH 13.8 % (11.5-14.5); WHITE BLOOD COUNT 8.5 K/uL (4.8-10.8)
[2019-02-26] MEDS ORDERED: Albuterol 0.083% Inhal Sol (2.5 mg/3 mL) UD ONE (19:27)
[2019-02-26 19:32] LABS: ALB/GLOB RATIO 1.2 (1.0-2.1); ALBUMIN 4.3 g/dL (3.5-5.0); ALT/SGPT 23 U/L (21-72); AST/SGOT 32 U/L (17-59); BLOOD UREA NITROGEN 23 mg/dL (9-20); GFR NON-AFRICAN AMERICAN > 60
--- NOTE | 2019-02-26 19:41 | C.PDOC ---
History Of Present Illness 58 year old male presents with 5 days of dry cough with some SOB. Patient has had issues sleeping since his chest feels tight when he coughs. He states cough usually occurs with deep inspiration. Denies fever or exertional chest pain. Patient has Hx of HTN and HLD, nonsmoker, no cardiac Hx, no Hx of COPD or asthma. Time Seen by Provider: 02/26/19 18:27 Chief Complaint (Nursing): Cough, Cold, Congestion History Per: Patient History/Exam Limitations: no limitations Onset/Duration Of Symptoms: Days (5) Current Symptoms Are (Timing): Still Present Associated Symptoms: Cough, Other (SOB) Recent travel outside of the [place]: No Past Medical History Reviewed: Historical Data, Nursing Documentation, Vital Signs Vital Signs: Last Vital Signs Temp 98.0 F 02/26/19 17:55 Pulse 70 02/26/19 17:55 Resp 18 02/26/19 17:55 BP 130/89 02/26/19 17:55 Pulse Ox 93 L 02/26/19 17:55 - Medical History PMH: Asthma, Bronchitis, HTN, Hypercholesterolemia, Kidney Stones, Chronic Kidney Disease Family History: States: Diabetes - Social History Hx Tobacco Use: No Hx Alcohol Use: No Hx Substance Use: No - Immunization History Hx Tetanus Toxoid Vaccination: Yes Hx Influenza Vaccination: No Hx Pneumococcal Vaccination: No Review Of Systems Constitutional: Negative for: Fever ENT: Negative for: Nose Congestion, Throat Pain Cardiovascular: Negative for: Chest Pain, Palpitations Respiratory: Positive for: Cough, Shortness of Breath Gastrointestinal: Negative for: Nausea, Vomiting Musculoskeletal: Negative for: Back Pain Skin: Negative for: Rash Neurological: Negative for: Weakness, Numbness Physical Exam - Physical Exam Appears: Non-toxic Skin: Normal Color, Warm Head: Atraumatic, Normacephalic Eye(s): bilateral: Normal Inspection Ear(s): Bilateral: Normal Nose: Normal Oral Mucosa: Moist Throat: Normal, No Erythema, No Exudate Neck: Normal, Supple Chest: Symmetrical, No Tenderness Cardiovascular: Rhythm Regular Respiratory: No Rales, Rhonchi (Bilateral bases), No Wheezing Gastrointestinal/Abdominal: Soft, No Tenderness Neurological/Psych: Oriented x3, Normal Speech ED Course And Treatment - Laboratory Results Result Diagrams: 02/26/19 19:15 02/26/19 19:15 Lab Results: Total Bilirubin 0.4 mg/dL (0.2-1.3) 02/26/19 19:15 AST 32 U/L (17-59) 02/26/19 19:15 ALT 23 U/L (21-72) 02/26/19 19:15 Alkaline Phosphatase 93 U/L (38-126) 02/26/19 19:15 Total Protein 7.9 g/dL (6.3-8.3) 02/26/19 19:15 Albumin 4.3 g/dL (3.5-5.0) 02/26/19 19:15 Globulin 3.6 gm/dL (2.2-3.9) 02/26/19 19:15 Albumin/Globulin Ratio 1.2 (1.0-2.1) 02/26/19 19:15 ECG: Interpreted By Me, Viewed By Me ECG Rhythm: Sinus Rhythm ECG Interpretation: Normal Interpretation Of ECG: Normal axis, normal intervals, no ST elevations. Rate From EC O2 Sat by Pulse Oximetry: 93 - Radiology CXR: Interpreted by Me CXR Interpretation: Yes: No Acute Disease Progress Note: Blood work and CXR ordered. Albuterol nebulizer administered. Medical Decision Making Medical Decision Making: Patient given duoneb x2 with improvement in dyspnea. CXR, labs, and EKG unremarkable. Results discussed with patient. Will treat for bronchitis, given five day history of dyspnea and cough with chest tightness. Rx written for z- pack. Tessalon pearle given here in the ED, and Rx written as well. Advised outpatient followup as needed. Return to the ED for any new or worsening symptoms. Disposition - Disposition Disposition: HOME/ ROUTINE Disposition Time: 20:59 Condition: STABLE Additional Instructions: VALERIE LOZANO, thank you for letting us take care of you today. Your provider was Christen Banegas MD and you were treated for ASTHMA/CHEST PRESSURE/BACK PAIN. The emergency medical care you received today was directed at your acute symptoms. If you were prescribed any medication, please fill it and take as directed. It may take several days for your symptoms to resolve. Return to the Emergency Department if your symptoms worsen, do not improve, or if you have any other problems. Please contact your doctor or call one of the physicians/clinics you have been referred to that are listed on the Patient Visit Information form that is included in your discharge packet. Bring any paperwork you were given at discharge with you along with any medications you are taking to your follow up visit. Our treatment cannot replace ongoing medical care by a primary care provider outside of the emergency department. Thank you for allowing the [facility] team to be part of your care today. If you had an X-Ray or CT scan: A Radiologist will review the ED reading if any change in treatment is needed we will contact you. If you had a blood, urine, or wound culture: It will take several days for the results, if any change in treatment is needed we will contact you. If you had an STI test: It will take 48 hours for the results. Please call after 1 week if you have not heard back. Prescriptions: Azithromycin [Zithromax] 250 mg PO DAILY #6 tab Benzonatate [Tessalon Perles] 100 mg PO TID PRN #14 sgl PRN Reason: Cough Instructions: Acute Bronchitis, Adult (DC) Forms: [employer] (Welsh) Print Language: ARMENIAN - Clinical Impression Clinical Impression: Bronchitis - Scribe Statement The provider has reviewed the documentation as recorded by the Scribe Gage Fox All medical record entries made by the Scribe were at my direction and personally dictated by me. I have reviewed the chart and agree that the record accurately reflects my personal performance of the history, physical exam, medical decision making, and the department course for this patient. I have also personally directed, reviewed, and agree with the discharge instructions and disposition.
[2019-02-26 20:58] VITALS: BP 125/84; PULSE 72; TEMP 97.8
[2019-02-26 21:48] VITALS: O2SAT 93
--- NOTE | 2019-02-27 17:53 | RAD ---
Date of service: 02/26/2019 HISTORY: dyspnea, cough COMPARISON: 03/08/2018 TECHNIQUE: 1 view obtained. FINDINGS: LUNGS: No active pulmonary disease. PLEURA: No significant pleural effusion identified, no pneumothorax apparent. CARDIOVASCULAR: No aortic atherosclerotic calcification present. Normal cardiac size. No pulmonary vascular congestion. OSSEOUS STRUCTURES: No significant abnormalities. VISUALIZED UPPER ABDOMEN: Normal. OTHER FINDINGS: None. IMPRESSION: No active disease.
--- NOTE | 2019-03-02 19:45 | CARD ---
APPROVED REPORT Date of service: 02/26/2019 EKG Measurement Heart [id number] <Conclusion> Normal sinus rhythm Normal ECG
== END 2019-02-26 20:59 | disposition home or self-care (01) ==
LOC: C.ER 17:43
DX: J40 Bronchitis, not specified as acute or chronic (principal)

== ENCOUNTER 2019-03-02 04:16 | Emergency (ER) | payer OTHER ==
[2019-03-02 04:17] VITALS: BMI 29.0
[2019-03-02] MEDS ORDERED: Albuterol-Ipratrop 3 mg / 0.5 (3 ml) UD ONE ×2 (04:34→05:13)
[2019-03-02] MEDS ORDERED: Albuterol-Ipratrop 3 mg / 0.5 (3 ml) UD INH STA (04:40)
--- NOTE | 2019-03-02 04:43 | C.PDOC ---
History Of Present Illness Patient presents to the ED c/o SOB, nasal congestion. Patient reports he was using his nebulizer treatments at home with no relief. Patient speaking in complete sentences. Patient denies fever, chills, headache, CP, palpitations, dizziness, weakness, numbness. <LisaBethtereza - Last Filed: 03/02/19 06:29> History Per: Patient History/Exam Limitations: no limitations Onset/Duration Of Symptoms: Days Current Symptoms Are (Timing): Still Present Initiating Event: Upper Respiratory Illness Quality: Tightness Current Respiratory Medications: See Home Med List Severity: Moderate Pain Scale Rating Of: 4 Associated Symptoms: denies: Fever, Chills Reports Recently: Treated By A Physician Recent travel outside of the [place]: No Additional History Per: Patient <Lit Gonzalez - Last Filed: 03/02/19 06:29> <Ella Moses - Last Filed: 03/02/19 10:06> Time Seen by Provider: 03/02/19 04:42 Chief Complaint (Nursing): Shortness Of Breath Past Medical History Reviewed: Historical Data, Nursing Documentation, Vital Signs Vital Signs: Last Vital Signs Temp 97.5 F L 03/02/19 04:34 Pulse 76 03/02/19 04:34 Resp 24 03/02/19 04:34 BP 115/78 03/02/19 04:34 Pulse Ox 97 03/02/19 04:34 - Medical History PMH: Asthma, Bronchitis, HTN, Hypercholesterolemia, Kidney Stones, Chronic Kidney Disease Surgical History: No Surg Hx Family History: States: Unknown Family Hx, Diabetes - Social History Hx Tobacco Use: No Hx Alcohol Use: No Hx Substance Use: No - Immunization History Hx Tetanus Toxoid Vaccination: Yes Hx Influenza Vaccination: No Hx Pneumococcal Vaccination: No <LisaBethtereza - Last Filed: 03/02/19 06:29> Vital Signs: Last Vital Signs Temp 97.5 F L 03/02/19 04:34 Pulse 68 03/02/19 07:19 Resp 20 03/02/19 07:19 BP 115/74 03/02/19 07:19 Pulse Ox 96 03/02/19 07:19 <Ella Moses - Last Filed: 03/02/19 10:06> Review Of Systems Constitutional: Negative for: Fever, Chills ENT: Positive for: Nose Discharge, Nose Congestion. Negative for: Throat Pain Cardiovascular: Negative for: Chest Pain, Palpitations Respiratory: Positive for: Cough, Shortness of Breath Gastrointestinal: Negative for: Nausea, Vomiting, Abdominal Pain Musculoskeletal: Negative for: Back Pain Skin: Negative for: Rash Neurological: Negative for: Weakness, Numbness, Headache, Dizziness Psych: Positive for: Anxiety <LisaValdi - Last Filed: 03/02/19 06:29> Physical Exam - Physical Exam Appears: Non-toxic Skin: Warm, Dry Head: Normacephalic Eye(s): bilateral: Normal Inspection Oral Mucosa: Moist Neck: Supple Chest: Symmetrical Cardiovascular: Rhythm Regular Respiratory: Decreased Breath Sounds, No Rales, Rhonchi, Wheezing Gastrointestinal/Abdominal: Soft, No Tenderness, No Distention Back: CVA Tenderness Extremity: Normal ROM, No Tenderness Extremity: Bilateral: Atraumatic, Normal Color And Temperature, Normal ROM Neurological/Psych: Oriented x3, Normal Speech, Normal Cognition Gait: Steady <Beth Gonzalezdi - Last Filed: 03/02/19 06:29> ED Course And Treatment - Laboratory Results Result Diagrams: 03/02/19 05:18 03/02/19 05:18 O2 Sat by Pulse Oximetry: 97 (ON RA) Pulse Ox Interpretation: Normal Progress Note: Plan: - CXR. - ABG. - CT chets. - Duoneb x 2. - Solumedrol 125 mg IVP <Beth Gonzalezdi - Last Filed: 03/02/19 06:29> - Laboratory Results Result Diagrams: 03/02/19 05:18 03/02/19 05:18 Lab Results: Total Bilirubin 0.6 mg/dL (0.2-1.3) 03/02/19 05:18 AST 32 U/L (17-59) 03/02/19 05:18 ALT 26 U/L (21-72) 03/02/19 05:18 Alkaline Phosphatase 71 U/L (38-126) 03/02/19 05:18 Total Protein 6.9 g/dL (6.3-8.3) 03/02/19 05:18 Albumin 3.9 g/dL (3.5-5.0) 03/02/19 05:18 Globulin 2.9 gm/dL (2.2-3.9) 03/02/19 05:18 Albumin/Globulin Ratio 1.3 (1.0-2.1) 03/02/19 05:18 <Ella Moses - Last Filed: 03/02/19 10:06> Critical Care Time - Critical Care Note Total Time (in mins): 30 Documented critical care: time excludes all time spent performing seperately billable procedures. <HavenlokeshLit - Last Filed: 03/02/19 06:29> Disposition Counseled Patient/Family Regarding: Studies Performed, Diagnosis - Disposition Disposition Time: 04:43 <LisaLit - Last Filed: 03/02/19 06:29> Counseled Patient/Family Regarding: Studies Performed, Diagnosis <Ella Moses - Last Filed: 03/02/19 10:06> - Disposition Condition: STABLE Prescriptions: Prednisone [Deltasone] 60 mg PO DAILY #12 tablet Instructions: Asthma in Adults Forms: Gen Discharge Inst Scottish, [facility] [facility] (Scottish), Work Excuse - Clinical Impression Clinical Impression: Dyspnea, Asthma exacerbation, Bronchitis - Scribe Statement The provider has reviewed the documentation as recorded by the Scribe Clyde Prince All medical record entries made by the Scribe were at my direction and personally dictated by me. I have reviewed the chart and agree that the record accurately reflects my personal performance of the history, physical exam, medical decision making, and the department course for this patient. I have also personally directed, reviewed, and agree with the discharge instructions and disposition. <LisaLit - Last Filed: 03/02/19 06:29> Physician Patient Turnover Patient Signed Over To: Ella Moses Handoff Comments: pending cta, re-eval and disposition <LisaLit - Last Filed: 03/02/19 06:29> Addendum Addendum: 03/02/19 07:00 Patient endorsed to me by Dr. Gonzalez at change of shift. Patient is a 58 y/o male with PMHx of asthma, who came in complaining of cough and chest tightness. No fevers, chills, nausea, or vomiting. Patient was seen 2 days prior and s tarted on albuterol and Zithromax, with no improvement. 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 Labs were ordered, and are unremarkable. Vitals are WNL. CT Angio was obtained to rule out pulmonary embolism, and is negative. On reevaluation patient is still complaining of chest tightness and cough despite receiving multiple nebs and solu-medrol. Plan is to continue to manage pt pharmacologically. <Ella Moses - Last Filed: 03/02/19 10:06>
[2019-03-02] MEDS: Albuterol-Ipratrop 3 mg / 0.5 (3 ml) UD IH SCH ×3 (04:45→05:15)
[2019-03-02] MEDS ORDERED: Iodixanol 320 MG/ML 100 ML BOTTLE IV ONE ×2 (05:09→06:52)
[2019-03-02 05:22] LABS: BASO # 0.1 K/uL (0.0-0.2); EOS # 1.3 K/uL (0.0-0.7); EOS % 14.7 % (0.0-4.0); HEMOGLOBIN 14.7 g/dL (12.0-18.0); LYMPH # 2.8 K/uL (1.0-4.3); LYMPH % 30.7 % (20.0-40.0); MEAN CELL VOLUME 85.9 fL (80.0-94.0); MEAN CORPUSCULAR HEMOGLOBIN 29.2 pg (27.0-31.0); MEAN CORPUSCULAR HGB CONC 34.1 g/dL (33.0-37.0); MEAN PLATELET VOLUME 8.1 fL (7.2-11.7); MONO # 0.4 K/uL (0.0-0.8); MONO % 4.3 % (0.0-10.0); NEUT # 4.4 K/uL (1.8-7.0); NEUT % 49.3 % (50.0-75.0); RBC 5.04 Mil/uL (4.40-5.90); RED CELL DISTRIBUTION WIDTH 13.6 % (11.5-14.5)
[2019-03-02 05:53] LABS: ALB/GLOB RATIO 1.3 (1.0-2.1); ALBUMIN 3.9 g/dL (3.5-5.0); ALT/SGPT 26 U/L (21-72); AST/SGOT 32 U/L (17-59); BLOOD UREA NITROGEN 20 mg/dL (9-20); CALCIUM 8.9 mg/dl (8.6-10.4); GFR NON-AFRICAN AMERICAN > 60
[2019-03-02 07:19] VITALS: RESP 20; O2SAT 96
--- NOTE | 2019-03-02 08:43 | CT ---
Date of service: 03/02/2019 PROCEDURE: CT Chest with contrast (Pulmonary Angiogram) HISTORY: SOB COMPARISON: None available. TECHNIQUE: Axial computed tomography images were obtained of the chest in the pulmonary arterial phase of enhancement. Coronal and sagittal reformatted images were created and reviewed. Intravenous contrast dose: 100 mL Visipaque 320 Radiation dose: Total exam DLP = 575.03 mGy-cm. This CT exam was performed using one or more of the following dose reduction techniques: Automated exposure control, adjustment of the mA and/or kV according to patient size, and/or use of iterative reconstruction technique. FINDINGS: PULMONARY ARTERIES: There are no filling defects in the pulmonary arteries to suggest acute pulmonary embolism. AORTA: No acute findings. No thoracic aortic aneurysm. No aortic atherosclerotic calcification or mural plaque present. LUNGS: The lungs are well inflated and clear. There is dependent atelectasis in the lungs. No nodule, mass or pulmonary consolidation. PLEURAL SPACES: No effusion or pneumothorax. HEART: No cardiomegaly. No significant pericardial effusion. LYMPH NODES: No pathologic mediastinal or hilar lymphadenopathy. BONES, CHEST WALL: Within normal limits for the patient's age. No fracture or destructive lesion OTHER FINDINGS: None. IMPRESSION: No CTA evidence for acute pulmonary embolism. No focal consolidation, pleural effusion or pneumothorax. A preliminary report was provided by [employer].
[2019-03-02] MEDS ORDERED: Sodium Chloride 0.9% 1,000 ML IV ONE (09:02)
[2019-03-02] MEDS ORDERED: Albuterol 0.083% Inhal Sol (2.5 mg/3 mL) UD INH SCH (09:15)
[2019-03-02] MEDS ORDERED: Sodium Chloride 0.9% 500 ML IV ONE ×2 (10:04→10:05)
[2019-03-02] MEDS: Magnesium Sulfate 1 gm in D5W 1 GM/100 ML BAG IVPB SCH (10:52)
[2019-03-02 10:54] VITALS: BP 126/77; PULSE 66; TEMP 97.8
== END 2019-03-02 10:54 | disposition home or self-care (01) ==
LOC: C.ER 04:16
DX: J45.901 Unspecified asthma with (acute) exacerbation (principal); E78.00 Pure hypercholesterolemia, unspecified; I12.9 Hypertensive chronic kidney disease with stage 1 through stage 4 chronic kidney disease, or unspecified chronic kidney disease; N18.9 Chronic kidney disease, unspecified
CPT/HCPCS: 71275; 80053; 85025; 96374; 99285; J2930; J7040; Q9967